=== PATIENT | female | born 1960 | race African-American/Black ===

== ENCOUNTER 2019-03-03 12:14 | Inpatient (IN) | payer OTHER ==
[~2019-03-03] VITALS: Ht 167.6 cm; Wt 99.3 kg
[~2019-03-03 12:14] MED LIST: ASPIRIN325 MG ORAL; LISINOPRIL-HCT1 EAC2 ORAL
--- NOTE | 2019-03-03 13:15 | NUR ---
NURSE NOTES: Pt came up to unit via w/c w/family at bedside and w/belongings accounted for. Pt A&Ox4, VSS, and in no apparent distress at this time. Noted open wound in left knee. Oriented pt to room and hospital policies. Will contact MD for admission orders.
[2019-03-03 13:55] VITALS: BP 151/92
--- NOTE | 2019-03-03 15:30 | Anethesia Preoperative Eval ---
Anesthesia Pre-op PMH/ROS General Date of Evaluation: Mar 03, 2019 Time of Evaluation: 15:25 Anesthesiologist: Audrey ASA Score: ASA 3 Mallampati Score Class I : Soft palate, uvula, fauces, pillars visible Class II: Soft palate, uvula, fauces visible Class III: Soft palate, base of uvula visible Class IV: Only hard plate visible Mallampati Classification: Class II Surgeon: Maicol Diagnosis: Infected L knee artroplasty Surgical Procedure: Revision of infected L knee wound Anesthesia History: none Family History: no anesthesia problems Allergies: Coded Allergies: ACETAMINOPHEN (Verified Allergy, Severe, 01/26/19) SKIN RASH [place] Nut (Verified Allergy, Severe, 01/26/19) TONGUE SWELLING HYDROCODONE (Verified Allergy, Severe, 01/26/19) SKIN RASH Uncoded Allergies: MACADAMIA (Allergy, Severe, 01/26/19) TONGUE SWELLING Medications: see eMAR Patient NPO?: Yes NPO Date: Mar 04, 2019 Past Medical History Cardiovascular: Reports: HTN; Denies: CAD, UT, valve dz, arrhythmia, other Pulmonary: Reports: JASON - heavy snoring; Denies: asthma, COPD, other Gastrointestinal/Genitourinary: Reports: GERD; Denies: CRI, ESRD, other Neurologic/Psychiatric: Reports: depression/anxiety; Denies: dementia, CVA, TIA, other Endocrine: Reports: DM - borderline HEENT: Denies: cataract (L), cataract (R), glaucoma, SIOUX (L), [place] (R), other Hematology/Immune: Denies: anemia, DVT, bleeding disorder, other Musculoskeletal/Integumentary: Reports: OA; Denies: RA, DJD, DDD, edema, other Other: obesity PMH Narrative: as above PSxH Narrative: see H&P Anesthesia Pre-op Phys. Exam Physician Exam Last Vital Signs Date Time Temp Pulse Resp B/P (MAP) Pulse Ox O2 Delivery O2 Flow Rate FiO2 03/03/19 13:55 98.2 91 20 151/92 (111) 97 Constitutional: NAD Neurologic: CN 2-12 intact Cardiovascular: RRR, no M/R/G Respiratory: other - diminished breath sounds bilaterally Gastrointestinal: other - obesity Airway Exam Mallampati Score: Class II MO: limited Neck: stiff ROM: limited Teeth: missing Dentures: no upper, no lower Anesthesia Pre-op A/P Labs see chart Risk Assessment & Plan Assessment: Asa 3 Plan: GA with LMA vs ETT Status Change Before Surgery: No Pre-Antibiotics Drug: as scheduled Venkatesh Ventura MD Mar 03, 2019 15:30
[2019-03-03 16:00] VITALS: BP 147/86
[2019-03-03] MEDS ORDERED: HYDROcodone/Acetamin 5/325 tab ORAL PRN ×2 (16:00)
[2019-03-03] MEDS: Tylenol #3 tab (300mg/30mg) ORAL PRN (17:42)
--- NOTE | 2019-03-03 18:30 | NUR ---
NURSE NOTES: Collected MRSA nares culture and dropped off at lab. Will endorse to oncoming shift.
--- NOTE | 2019-03-03 19:46 | NUR ---
HAND-OFF: Report given to MARYBETH Hubbard.
[2019-03-03 20:00] VITALS: BP 153/87
[2019-03-03] MEDS ORDERED: Zolpidem 5mg tab ORAL PRN (21:00)
[2019-03-04] VITALS (13 sets, daily range): BP systolic 117–163; BP diastolic 65–93
[2019-03-04 05:13] LABS: BASOPHILS % (AUTO) 1.5 % (0.0-2.0); EOSINOPHILS % (AUTO) 4.3 % (0.0-3.0); LYMPHOCYTES % (AUTO) 32.9 % (20.0-45.0); MEAN CORPUSCULAR VOLUME 98 FL (80-99); MONOCYTES % (AUTO) 9.2 % (1.0-10.0); NEUTROPHILS % (AUTO) 52.1 % (45.0-75.0); PLATELET COUNT 142 K/UL (150-450); RED BLOOD COUNT 3.36 M/UL (4.20-5.40); RED CELL DISTRIBUTION WIDTH 18.3 % (11.6-14.8); WHITE BLOOD COUNT 5.7 K/UL (4.8-10.8)
[2019-03-04 05:27] LABS: ANION GAP 7 mmol/L (5-15); BLOOD UREA NITROGEN 7 mg/dL (7-18); CALCIUM 8.4 MG/DL (8.5-10.1); CARBON DIOXIDE 29 MMOL/L (21-32); CHLORIDE 107 MMOL/L (98-107); CREATININE 0.8 MG/DL (0.55-1.30); POTASSIUM 3.1 MMOL/L (3.5-5.1); SODIUM 143 MMOL/L (136-145)
[2019-03-04 05:31] LABS: INR 0.9 (0.9-1.1)
--- NOTE | 2019-03-04 08:41 | History & Physical ---
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 s/p Left Total Knee Resurface arthroplasty Hypertension MEDS and ALLERGIES reviewed and reconciled PHYSICAL WDWN NAD clear breath sounds bilaterally without rhonchi or wheeze [id number] without MRG NABS nontender no HSM no CCE nonfocal Labs Test 03/04/19 05:00 White Blood Count 5.7 K/UL (4.8-10.8) Red Blood Count 3.36 M/UL (4.20-5.40) Hemoglobin 11.0 G/DL (12.0-16.0) Hematocrit 33.0 % (37.0-47.0) Mean Corpuscular Volume 98 FL (80-99) Mean Corpuscular Hemoglobin 32.6 PG (27.0-31.0) Mean Corpuscular Hemoglobin Concent 33.2 G/DL (32.0-36.0) Red Cell Distribution Width 18.3 % (11.6-14.8) Platelet Count 142 K/UL (150-450) Mean Platelet Volume 6.9 FL (6.5-10.1) Neutrophils (%) (Auto) 52.1 % (45.0-75.0) Lymphocytes (%) (Auto) 32.9 % (20.0-45.0) Monocytes (%) (Auto) 9.2 % (1.0-10.0) Eosinophils (%) (Auto) 4.3 % (0.0-3.0) Basophils (%) (Auto) 1.5 % (0.0-2.0) Prothrombin Time 10.1 SEC (9.30-11.50) Prothromb Time International Ratio 0.9 (0.9-1.1) Activated Partial Thromboplast Time 26 SEC (23-33) Sodium Level 143 MMOL/L (136-145) Potassium Level 3.1 MMOL/L (3.5-5.1) Chloride Level 107 MMOL/L (98-107) Carbon Dioxide Level 29 MMOL/L (21-32) Anion Gap 7 mmol/L (5-15) Blood Urea Nitrogen 7 mg/dL (7-18) Creatinine 0.8 MG/DL (0.55-1.30) Estimat Glomerular Filtration Rate > 60 mL/min (>60) Glucose Level 99 MG/DL (74-106) Calcium Level 8.4 MG/DL (8.5-10.1) IMPRESSION End stage joint degeneration, Left Knee. s/p Left Total Knee Resurface arthroplasty Hypertension mild anemia low K replaced PLAN surgical intervention NPO IV hydration pain management patient medically stable to proceed impression, plan, and exam edited and reviewed in detail care discussed with Nhan Akhtar MD Mar 04, 2019 08:41
[2019-03-04] MEDS: Lisinopril 20mg tab ORAL SCH (08:46)
--- NOTE | 2019-03-04 09:19 | NUR ---
NURSE NOTES: Patient received in stable condition, resting in bed. Alert and oriented. Breathing unlabored on room air. No signs of apparent distress observed. IV site on right arm patent and intact, fluids running at 100cc/hr. Scheduled for knee surgery today. Patient's cane by the bedside. Bed locked in lowest position, call light placed within reach. Will continue to monitor.
--- NOTE | 2019-03-04 09:26 | NUR ---
*-* NO INSURANCE INFORMATION IN THE BAR UNABLE TO SEND CLINICALS OR REVIEWS *-*
[2019-03-04] MEDS ORDERED: fentaNYL 100 mcg/2 mL IV ONE (10:25)
[2019-03-04] MEDS ORDERED: Midazolam 2mg/2ml Inj ONE (10:25)
[2019-03-04] MEDS ORDERED: Propofol 200mg/20ml IV ONE (10:26)
[2019-03-04] MEDS ORDERED: Lidocaine 1% MPF 10mg/ml 5ml ONE (10:26)
[2019-03-04] MEDS ORDERED: Bacitracin 50000 Units Vial ONE (10:35)
[2019-03-04] MEDS ORDERED: NeoSporin Gu Irrig 1ml Amp IRRIG ONE (10:35)
[2019-03-04] MEDS ORDERED: LR 1000ml 1,000 ML IVLG SCH (10:36)
[2019-03-04] MEDS ORDERED: Ketorolac 30mg Inj IV PRN (10:45)
[2019-03-04] MEDS ORDERED: Acetaminophen (Non formulary) 100 ML IV ONE (10:45)
[2019-03-04] MEDS ORDERED: Hydromorphone 0.5mg/0.5ml inj IVP PRN (10:45)
[2019-03-04] MEDS ORDERED: DiphenhydrAMINE 50mg/ml Inj IVP PRN (10:45)
[2019-03-04] MEDS ORDERED: LR 1000ml ONE (11:00)
[2019-03-04] MEDS ORDERED: Sterile Water Irrig 1000ml IRRIG ONE (11:00)
[2019-03-04] MEDS ORDERED: NS Irrig 1000ml ONE (11:00)
[2019-03-04] MEDS ORDERED: NS Irrig 4000ml IRRIG ONE (11:00)
--- NOTE | 2019-03-04 11:01 | Pre-Procedure Note/Attestation ---
Pre-Procedure Note/Attestation Complete Prior to Procedure Planned Procedure: left Procedure Narrative: Left Knee Wound breakdown, S/P TKR 01/27/19. For wound debriedmet and closure Indications for Procedure Pre-Operative Diagnosis: Left Knee Wound breakdown, S/P TKR 01/27/19. For wound debriedmet and closure Attestation I attest that I discussed the nature of the procedure; its benefits; risks and complications; and alternatives (and the risks and benefits of such alternatives ), prior to the procedure, with the patient (or the patient's legal guest experience representative). I attest that, if there was a reasonable possibility of needing a blood transfusion, the patient (or the patient's legal guest experience representative) was given the [place] Department [employer] Services standardized written summary, pursuant to the [place]ath[place] Blood Safety Act ([place] Health and Safety Code # 1645, as amended). I attest that I re-evaluated the patient just prior to the surgery and that there has been no change in the patient's H&P, except as documented below: Santino Deleon Mar 04, 2019 11:01
[2019-03-04] MEDS ORDERED: Morphine Sulfate 10mg/ml Inj ONE (11:34)
[2019-03-04] MEDS ORDERED: Sodium Chloride 10ml vial INJ ONE (11:35)
--- NOTE | 2019-03-04 11:35 | Diagnostic Imaging Report ---
Indication: Reason For Exam: PREOP Technique: Single AP view of the chest. Comparison: Chest radiograph dated 08/06/2013 Findings: The cardiomediastinal silhouette is within normal limits. There is mild pulmonary vascular congestion without air space consolidation. No pneumothorax or pleural effusion. Osseous structures demonstrate no acute abnormality. IMPRESSION: Pulmonary vascular congestion without airspace consolidation.
--- NOTE | 2019-03-04 12:01 | Operative Note - PDOC ---
Operative Note Operative Note Pre-op Diagnosis: Left Knee Wound breakdown, S/P TKR 01/27/19. For wound debriedmet and closure Procedure: Left Knee TKR Wound debridement and application of wound vac device Surgeon: Barron Fertilizer Applicator: ITZEL Deleon Anesthesiologist: Audrey Anesthesia: general Specimen: yes - cultures of wound Complications: none Condition: stable Estimated Blood Loss: minimal Drains: wound vac Tourniquet time: 0 - min Implant(s) used?: No Santino Deleon Mar 04, 2019 12:01
--- NOTE | 2019-03-04 12:08 | Immediate Post-Op Evaluation ---
Immediate Post-Op Evalulation Immediate Post-Op Evalulation Procedure: I&D and revision of L knee wound with woundvac placement Date of Evaluation: Mar 04, 2019 Time of Evaluation: 12:07 IV Fluids: 500 Blood Products: none Estimated Blood Loss: min Urinary Output: none Blood Pressure Systolic: 147 Blood Pressure Diastolic: 72 Pulse Rate: 86 Respiratory Rate: 20 O2 Sat by Pulse Oximetry: 99 Temperature (Fahrenheit): 97.6 Pain Score (1-10): 2 Nausea: No Vomiting: No Complications none Patient Status: awake, patent, none Hydration Status: adequate Venkatesh Ventura MD Mar 04, 2019 12:08
--- NOTE | 2019-03-04 13:20 | NUR ---
NURSE NOTES: Received report from Heide RUEDA, pt a/a/o x4 laying in bed with no signs of distress or other issues at this time. VS: Temp: 97.2, HR: 84, BP: 140/92, R: 18, spo2: 100% @2L via n/c. wound vac in place at 125ml/mg continues suction. knee immobilizer in place as well as ice pack. RN will review orders and will carry on as indicated. call light with within reach, bed in lowest position. side rales up x2. I will f/u as needed.
--- NOTE | 2019-03-04 13:41 | NUR ---
*-* INSURANCE *-* ALL AVAILABLE CLINICALS HAVE BEEN FAXED TO: [facility] ADJ: NIRMALA CLARK. P- [phone] F- [phone]
[2019-03-04] MEDS: D5 1/2NS 1,000 ML IV SCH (13:43)
[2019-03-04] MEDS: Tylenol #3 tab (300mg/30mg) ORAL PRN ×2 (13:43→18:13)
--- NOTE | 2019-03-04 17:30 | Operative Note - Dictated ---
DATE OF OPERATION: 03/04/2019 SURGEON: Santino Mart M.D. EVENTS TRAFFIC CONTROLLER: Santino SANTIZO. ANESTHESIA: General, Dr. Ventura. PREOPERATIVE DIAGNOSES: Status post total knee replacement left with superficial wound infection and delayed healing. POSTOPERATIVE DIAGNOSES: Status post total knee replacement left with superficial wound infection and delayed healing. OPERATIVE PROCEDURE: Debridement, culturing of a superficial delayed wound closure left knee following total knee replacement. DESCRIPTION OF PROCEDURE: The patient was placed in the supine position. General anesthesia was instituted. The leg including the anterior knee was prepped and draped freely. There was a delayed wound healing involving the total knee incision on the left. The 6 inch incision was not primarily closed with areas of granulation tissue and some necrotic skin left at the margins and into islands centrally 1 towards the distal and 1 towards the proximal end of the wound. The 2 islands of necrotic skin were removed using a 15 blade to viable granulation tissue underneath. All of the edges were trimmed and all obviously nonviable fascial tissue and hypertrophic granulation was removed to a viable granulating base. Cultures were taken before the cleanout through the middle of the wound where a culture tip could be placed subcuticularly without touching the wound edges. Once it had been debrided, the wound was power lavaged and then scrubbed and lavaged once again. A wound VAC was then placed covering the entire wound from proximal to distal. The size of the wound was 5 inches from proximal to distal and approximately 1 to 2 cm in width varying from proximal to distal. The soft tissues outside the edges was viable and there was not a significant gap that required tension sutures. The patient will probably benefit from hyperbaric oxygen and use of the wound VAC. We will get a plastic surgery consultation. The patient was placed in a bulky dressing and the tissues were supported specially circumferentially around the calf to prevent venous stasis. The patient was returned to recovery room in good condition. Santino Mart M.D. DR: JEREMIE JOB#: [id number] CC:
[2019-03-04] MEDS: ceFAZolin sod 1 GM in D5W 55 ML IV SCH (18:54)
--- NOTE | 2019-03-04 19:00 | NUR ---
NURSE NOTES: called Sruthi WAGE AND SALARY ADMINISTRATOR to request stronger pain medication since pt stated that the Tylenol #3 is not relieving her pain. RN will carry on TO orders. I will f/u as needed.
--- NOTE | 2019-03-04 19:20 | NUR ---
HAND-OFF: Report given to Stevie Mendiola pt in stable condition.
[2019-03-04] MEDS: HYDROmorphone 1mg/ml Carpuject IVP PRN (19:38)
--- NOTE | 2019-03-04 22:11 | NUR ---
NURSE NOTES: Received report from MARYBETH Day and rounds made with outgoing nurse. Received pt laying in bed, AOx4, pain level 8/10, will medicate for pain. Surgical dressing C/D/I, knee immobolizer, ice pack in place, SCD on right leg. IV R FA patent and intact. Bed in lowest position and locked, side rails up x 2, call light within reach. Will continue to monitor.
[2019-03-05] VITALS: BP 127/78
[2019-03-05] MEDS: HYDROmorphone 1mg/ml Carpuject IVP PRN ×2 (00:05→20:17)
[2019-03-05] MEDS: D5 1/2NS 1,000 ML IV SCH (00:24)
--- NOTE | 2019-03-05 02:38 | NUR ---
HAND-OFF: Report given to MARYBETH Abraham. Pt in stable condition.
[2019-03-05 04:00] VITALS: BP 149/100
[2019-03-05] MEDS: ceFAZolin sod 1 GM in D5W 55 ML IV SCH (04:01)
--- NOTE | 2019-03-05 07:45 | NUR ---
NURSE NOTES: Received report from Yuan RN, pt a/a/o x4 laying in bed with no signs of distress or other issues at this time. surgical site c/d/i, ice pack in place. pt c/o of pain in surgical incision 12/20. RN will medicate as ordered per MD. IV on the right FA gauge#22 heplock. wound vac in place settings: 125ml mild continues suction. over night out put: 50ml. oscar light within reach, bed in lowest position. side rales up x2. I will f/u as needed.
[2019-03-05 08:00] VITALS: BP 112/84
--- NOTE | 2019-03-05 08:03 | 48 Hour Post Anesthesia Eval ---
Post Anesthesia Evaluation Procedure: I&D and revision of L knee wound with woundvac placement Date of Evaluation: Mar 05, 2019 Time of Evaluation: 08:02 Blood Pressure Systolic: 148 0: 78 Pulse Rate: 86 Respiratory Rate: 20 Temperature (Fahrenheit): 97.6 O2 Sat by Pulse Oximetry: 98 Airway: patent Nausea: No Vomiting: No Pain Intensity: 3 Hydration Status: adequate Cardiopulmonary Status: stable Mental Status/LOC: patient returned to baseline Follow-up Care/Observations: N/A Post-Anesthesia Complications: none Follow-up care needed: N/A Venkatesh Ventura MD Mar 05, 2019 08:03
--- NOTE | 2019-03-05 08:08 | NUR ---
HAND-OFF: Report given to MARYBETH Day. Patient in stable condition.
--- NOTE | 2019-03-05 08:29 | General Progress Note ---
Assessment/Plan Assessment/Plan: Status post total knee replacement left with superficial wound infection and delayed healing. Debridement, culturing of a superficial delayed wound closure left knee following total knee replacement. hypertension PLAN 1. incentive spirometry 2. Lovenox 3. PT evaluation and therapy 4. Antibiotics per ID 5. Pain management 6. discharge once stable with outpatient follow up Subjective Allergies: Coded Allergies: [place] Nut (Verified Allergy, Severe, 01/26/19) TONGUE SWELLING HYDROCODONE (Verified Allergy, Severe, 01/26/19) SKIN RASH Uncoded Allergies: MACADAMIA (Allergy, Severe, 01/26/19) TONGUE SWELLING Subjective post op care noted ID called Objective Last 24 Hour Vital Signs Date Time Temp Pulse Resp B/P (MAP) Pulse Ox O2 Delivery O2 Flow Rate FiO2 03/05/19 08:03 86 20 98 03/05/19 08:00 97.4 79 20 112/84 (93) 93 03/05/19 04:00 98.4 85 18 149/100 (116) 98 03/05/19 00:00 98.2 78 18 127/78 (94) 96 03/04/19 21:00 Room Air 03/04/19 20:00 98.8 81 18 117/71 (86) 95 03/04/19 18:43 97.2 03/04/19 16:00 97.2 61 18 120/70 (87) 95 03/04/19 13:15 97.5 72 16 163/70 98 Nasal Cannula 3 03/04/19 13:00 68 15 127/65 97 Nasal Cannula 3 03/04/19 12:42 76 17 133/73 100 Nasal Cannula 3 03/04/19 12:37 75 15 125/70 100 Nasal Cannula 3 03/04/19 12:30 78 18 131/84 100 Nasal Cannula 3 03/04/19 12:20 88 16 130/93 100 Simple Mask 6 03/04/19 12:10 79 17 143/89 100 Simple Mask 6 03/04/19 12:08 86 20 99 03/04/19 12:04 97.8 86 20 136/78 100 Simple Mask 6 03/04/19 10:45 97.6 03/04/19 09:00 Room Air 03/04/19 08:46 144/91 Intake and Output 03/04/19 03/05/19 19:00 07:00 Intake Total 1025 ml 1230 ml Output Total 0 ml Balance 1025 ml 1230 ml Intake Oral 800 ml 800 ml IV Total 225 ml 430 ml Output Drainage Total 0 ml # Voids 2 3 Height (Feet): 5 Height (Inches): 6.00 Weight (Pounds): 219 Objective WDWN NAD clear breath sounds bilaterally without rhonchi or wheeze [id number] without MRG NABS nontender no HSM no CCE nonfocal Nhan Cardenas MD Mar 05, 2019 08:29
[2019-03-05] MEDS: Lisinopril 20mg tab ORAL SCH (08:46)
--- NOTE | 2019-03-05 09:44 | General Surgery Progress Note ---
General Surgery-Progress Note Subjective Procedure Performed Left Knee TKR Wound debridement and application of wound vac device Objective Last 24 Hour Vital Signs Date Time Temp Pulse Resp B/P (MAP) Pulse Ox O2 Delivery O2 Flow Rate FiO2 03/05/19 08:46 148/78 03/05/19 08:03 86 20 98 03/05/19 08:00 97.4 79 20 112/84 (93) 93 03/05/19 04:00 98.4 85 18 149/100 (116) 98 03/05/19 00:00 98.2 78 18 127/78 (94) 96 03/04/19 21:00 Room Air 03/04/19 20:00 98.8 81 18 117/71 (86) 95 03/04/19 18:43 97.2 03/04/19 16:00 97.2 61 18 120/70 (87) 95 03/04/19 13:15 97.5 72 16 163/70 98 Nasal Cannula 3 03/04/19 13:00 68 15 127/65 97 Nasal Cannula 3 03/04/19 12:42 76 17 133/73 100 Nasal Cannula 3 03/04/19 12:37 75 15 125/70 100 Nasal Cannula 3 03/04/19 12:30 78 18 131/84 100 Nasal Cannula 3 03/04/19 12:20 88 16 130/93 100 Simple Mask 6 03/04/19 12:10 79 17 143/89 100 Simple Mask 6 03/04/19 12:08 86 20 99 03/04/19 12:04 97.8 86 20 136/78 100 Simple Mask 6 03/04/19 10:45 97.6 I&O Intake and Output 03/04/19 03/05/19 19:00 07:00 Intake Total 1025 ml 1230 ml Output Total 0 ml Balance 1025 ml 1230 ml Intake Oral 800 ml 800 ml IV Total 225 ml 430 ml Output Drainage Total 0 ml # Voids 2 3 Additional Comments Patient post op wound debridement left knee wound. wound covered by wound vac. Stable overnight. Plan Additional Comments Dr. Cardenas following. Patient will need Plastic Surgery / Wound care team management with possible hyperberic therapy to heal this wound and to protect underlying hardware. Santino Deleon Mar 05, 2019 09:44
--- NOTE | 2019-03-05 11:30 | NUR ---
PT NOTE Received MD order for PT evaluation. Attempted to see patient, patient requesting that therapist return at 1:00 p.m. so that she could rest. Barb RUEDA notified, will follow up in p.m.
[2019-03-05 12:00] VITALS: BP 114/77
[2019-03-05] MEDS: Vancomycin 750mg/D5W 275ml IVPB SCH ×4 (12:26→23:24)
--- NOTE | 2019-03-05 13:17 | NUR ---
*-* INSURANCE *-* ALL AVAILABLE CLINICALS HAVE BEEN FAXED TO: [facility] ADJ: NIRMALA CLARK. P- [phone] F- [phone]
--- NOTE | 2019-03-05 13:30 | NUR ---
PT EVALUATION NOTE Patient seen for initial evaluation, see complete evaluation for details. Patient presents with painful L knee s/p wound debridement and placement of wound vac with impaired functional mobility. Patient able to transfer with SBA/CGA and FWW, and able to ambulate 5 ft with CGA and FWW, limited by pain. Patient will benefit from skilled inpatient PT intervention to address overall strength, safety and balance to improve level of functional mobility. Recommend discharge home vs short term SNF for rehab depending on patient's progress once medically cleared by MD. Patient appears to have necessary DME at home. Addendum: 03/05/19 at 1418 by RAMIN VARGHESE PT Amended: Links added.
[2019-03-05] MEDS: Tylenol #3 tab (300mg/30mg) ORAL PRN (15:35)
[2019-03-05 16:00] VITALS: BP 124/69
--- NOTE | 2019-03-05 19:30 | NUR ---
NURSE NOTES: Received report from MARYBETH Day and rounds made with outgoing nurse. Received pt a/a/o x4 laying in bed with no signs of distress noted. Surgical site c/d/i, ice pack in place.Denies pain at this time. IV on the right FA gauge#22 heplock. wound vac in place settings: 125mm Hg continues mild suction. Bed in lowest position and locked, side rails up x 2, call light within reach. Will continue to monitor.
--- NOTE | 2019-03-05 19:32 | NUR ---
HAND-OFF: Report given to Stevie Mendiola pt in stable condition. Wound vac out put during my shift: 50ml
[2019-03-05 20:00] VITALS: BP 139/81
--- NOTE | 2019-03-05 23:00 | NUR ---
NURSE NOTES: Pt refused SCD at this time.
[2019-03-06] VITALS: BP 144/94
[2019-03-06] MEDS: HYDROmorphone 1mg/ml Carpuject IVP PRN ×3 (01:02→22:21)
[2019-03-06 05:17] VITALS: BP 140/91
--- NOTE | 2019-03-06 07:31 | NUR ---
HAND-OFF: Report given to MARYBETH Day. Pt in stable condition.
--- NOTE | 2019-03-06 07:42 | NUR ---
NURSE NOTES: Received report from Stevie Mendiola pt a/a/o x4 laying in bed with no signs of distress or any complains at this time. wound vac in place, no out put over night. pt is able to walk to the bathroom with staff assistance. IV on the Left FA gauge#22 heplock. call light within reach, bed in lowest position. side rales up x2. I will f/u as needed.
[2019-03-06 08:00] VITALS: BP 139/88
--- NOTE | 2019-03-06 08:48 | General Progress Note ---
Assessment/Plan Assessment/Plan: Status post total knee replacement left with superficial wound infection and delayed healing. Debridement, culturing of a superficial delayed wound closure left knee following total knee replacement. hypertension, cultures + staph PLAN 1. incentive spirometry 2. Lovenox 3. PT evaluation and therapy 4. Antibiotics per ID 5. Pain management 6. discharge once stable with outpatient follow up Subjective Allergies: Coded Allergies: [place] Nut (Verified Allergy, Severe, 01/26/19) TONGUE SWELLING HYDROCODONE (Verified Allergy, Severe, 01/26/19) SKIN RASH Uncoded Allergies: MACADAMIA (Allergy, Severe, 01/26/19) TONGUE SWELLING Subjective post op care noted ID and cultures noted Objective Last 24 Hour Vital Signs Date Time Temp Pulse Resp B/P (MAP) Pulse Ox O2 Delivery O2 Flow Rate FiO2 03/06/19 08:00 98.7 87 18 139/88 (105) 95 03/06/19 05:17 98.6 86 18 140/91 (107) 96 03/06/19 00:00 99.1 86 18 144/94 (111) 96 03/05/19 21:00 Room Air 03/05/19 20:00 99.2 82 18 139/81 (100) 96 03/05/19 16:05 98.2 03/05/19 16:00 98.0 77 21 124/69 (87) 93 03/05/19 12:00 98.2 78 20 114/77 (89) 93 03/05/19 09:00 Room Air Intake and Output 03/05/19 03/06/19 19:00 07:00 Intake Total 1730 ml 755.000 ml Output Total 0 ml Balance 1730 ml 755.000 ml Intake Oral 1400 ml 480 ml IV Total 330 ml 275.000 ml Output Drainage Total 0 ml # Voids 2 5 Height (Feet): 5 Height (Inches): 6.00 Weight (Pounds): 219 Objective WDWN NAD clear breath sounds bilaterally without rhonchi or wheeze [id number] without MRG NABS nontender no HSM no CCE nonfocal Nhan Cardenas MD Mar 06, 2019 08:48
[2019-03-06] MEDS: Lisinopril 20mg tab ORAL SCH (08:49)
[2019-03-06] MEDS: Tylenol #3 tab (300mg/30mg) ORAL PRN (08:52)
--- NOTE | 2019-03-06 09:26 | General Surgery Progress Note ---
General Surgery-Progress Note Subjective Procedure Performed Left Knee TKR Wound debridement and application of wound vac device Objective Last 24 Hour Vital Signs Date Time Temp Pulse Resp B/P (MAP) Pulse Ox O2 Delivery O2 Flow Rate FiO2 03/06/19 08:49 139/88 03/06/19 08:00 98.7 87 18 139/88 (105) 95 03/06/19 05:17 98.6 86 18 140/91 (107) 96 03/06/19 00:00 99.1 86 18 144/94 (111) 96 03/05/19 21:00 Room Air 03/05/19 20:00 99.2 82 18 139/81 (100) 96 03/05/19 16:05 98.2 03/05/19 16:00 98.0 77 21 124/69 (87) 93 03/05/19 12:00 98.2 78 20 114/77 (89) 93 I&O Intake and Output 03/05/19 03/06/19 19:00 07:00 Intake Total 1730 ml 755.000 ml Output Total 0 ml Balance 1730 ml 755.000 ml Intake Oral 1400 ml 480 ml IV Total 330 ml 275.000 ml Output Drainage Total 0 ml # Voids 2 5 Additional Comments Request for wound management and plastic surgery treatment (Dr. Coronado) is pending insurance carrier approval. Will have wound care nurse change wound vac as per protocol. Cultures: staph aureus, sensitivities pending. Dr. Cardenas following. NO DISCHARGE UNTIL WOUND CARE IN PLACE. Santino Deleon Mar 06, 2019 09:26
--- NOTE | 2019-03-06 09:51 | NUR ---
NURSE NOTES: Called Dr. Cardenas to notify that pt's potassium is 3.1. RN will carry on orders. I will f/u as needed.
--- NOTE | 2019-03-06 11:37 | NUR ---
*-* INSURANCE *-* ALL AVAILABLE CLINICALS HAVE BEEN FAXED TO: [facility] ADJ: NIRMALA CLARK. P- [phone] F- [phone]
--- NOTE | 2019-03-06 11:52 | Infectious Diseases Prog Note ---
Assessment/Plan Assessment/Plan A; Surgical wound infection with MSSA s/p left total knee replacement HPN Obesity Osteoarthritis P; Change Vancomycin to Cefazolin Subjective ROS Limited/Unobtainable: No Constitutional: Reports: no symptoms Respiratory: Reports: no symptoms Cardiovascular: Reports: no symptoms Genitourinary: Reports: no symptoms Musculoskeletal: Reports: pain, other - in left knee Allergies: Coded Allergies: [place] Nut (Verified Allergy, Severe, 01/26/19) TONGUE SWELLING HYDROCODONE (Verified Allergy, Severe, 01/26/19) SKIN RASH Uncoded Allergies: MACADAMIA (Allergy, Severe, 01/26/19) TONGUE SWELLING Objective Vital Signs Last 24 Hour Vital Signs Date Time Temp Pulse Resp B/P (MAP) Pulse Ox O2 Delivery O2 Flow Rate FiO2 03/06/19 09:22 98.7 03/06/19 09:00 Room Air 03/06/19 08:49 139/88 03/06/19 08:00 98.7 87 18 139/88 (105) 95 03/06/19 05:17 98.6 86 18 140/91 (107) 96 03/06/19 00:00 99.1 86 18 144/94 (111) 96 03/05/19 21:00 Room Air 03/05/19 20:00 99.2 82 18 139/81 (100) 96 03/05/19 16:00 98.0 77 21 124/69 (87) 93 03/05/19 12:00 98.2 78 20 114/77 (89) 93 Height (Feet): 5 Height (Inches): 6.00 Weight (Pounds): 219 General Appearance: no acute distress HEENT: mucous membranes moist Respiratory/Chest: lungs clear Cardiovascular: normal rate Abdomen: soft, non tender Extremities: other - edema of left leg Skin: other - wound-vac of left knee Neurologic/Psychiatric: alert, oriented x 3, responsive Microbiology Date/Time Source Procedure Growth Status 03/03/19 20:45 Nasal Nares MRSA Culture - Final NO METHICILLIN RESISTANT STAPH AUREUS... Complete 03/04/19 11:35 Knee Left Gram Stain - Final Resulted 03/04/19 11:35 Surgical Biopsy Culture - Preliminary Staphylococcus Aureus Resulted 03/04/19 11:35 Knee Left Gram Stain - Final Resulted 03/04/19 11:35 Aerobic Culture - Final Staphylococcus Aureus Resulted 03/04/19 11:35 Knee Left Anaerobic Culture - Preliminary Resulted Current Medications Medications (Trade) Dose Ordered Sig/Felix Route PRN Reason Start Time Stop Time Status Last Admin Dose Admin Acetaminophen (Tylenol) 650 mg Q6H PRN ORAL Temp > 100.5 03/04/19 19:30 04/03/19 11:59 Acetaminophen/ Codeine Phosphate (Tylenol #3) 1 tab Q4H PRN ORAL Mild Pain (Pain Scale 1-3) 03/04/19 19:30 03/10/19 16:44 03/06/19 08:52 Al Hydroxide/Mg Hydroxide (Mylanta) 30 ml Q6H PRN ORAL indigestion 03/03/19 16:45 04/02/19 16:44 Hydrochlorothiazide (Hydrodiuril) 25 mg DAILY ORAL 03/04/19 09:00 04/03/19 08:59 03/06/19 08:49 Hydromorphone HCl (Dilaudid) 1 mg Q4H PRN IVP Moderate Pain (Pain Scale 4-6) 03/04/19 19:30 03/11/19 19:29 03/06/19 05:14 Hydromorphone HCl (Dilaudid) 2 mg Q3H PRN SUBQ Severe Breakthru Pain (>7) 03/04/19 19:30 03/11/19 19:29 Hydromorphone HCl (Dilaudid) 2 mg Q4H PRN IVP Severe Pain (Pain Scale 7-10) 03/04/19 20:00 03/11/19 19:59 03/05/19 10:31 Lisinopril (Prinivil) 20 mg DAILY ORAL 03/04/19 09:00 04/03/19 08:59 03/06/19 08:49 Ondansetron HCl (Zofran) 4 mg Q6H PRN IVP Nausea & Vomiting 03/04/19 12:00 04/03/19 11:59 Pantoprazole (Protonix) 40 mg DAILY ORAL 03/04/19 09:00 04/03/19 08:59 03/06/19 08:49 Temazepam (Restoril) 7.5 mg HSPRN PRN ORAL Insomnia 03/04/19 21:00 03/11/19 20:59 03/05/19 23:20 Vancomycin HCl (Vanco rx to dose) 1 ea DAILY PRN MISC Per rx protocol 03/05/19 10:30 04/04/19 10:29 Vancomycin HCl 750 mg/Dextrose 275 ml @ 183.333 mls/hr Q12H IVPB 03/05/19 12:00 03/10/19 11:59 03/05/19 23:24 Mesfin Barros MD Mar 06, 2019 11:52
--- NOTE | 2019-03-06 11:54 | Consultation ---
DATE OF CONSULTATION: 03/05/2019 INFECTIOUS DISEASES CONSULTATION CONSULTING PHYSICIAN: Mare Lockwood M.D. REFERRING PHYSICIAN: Nhan Cardenas M.D. REASON FOR CONSULTATION: Left knee infection. HISTORY OF PRESENTING ILLNESS: This is a 58-year-old lady with history of hypertension, left knee arthritis, status post left knee arthroplasty, who developed a wound breakdown. There was a concern for wound infection. She underwent debridement of the wound. An Infectious Diseases consultation has been obtained for antibiotics. PAST MEDICAL HISTORY: 1. History of hypertension. 2. History of left knee arthroplasty. SOCIAL HISTORY: She used to be a smoker. She does not smoke anymore. She drinks alcohol socially. No history of drug use. FAMILY HISTORY: Noncontributory. REVIEW OF SYSTEMS: RESPIRATORY: No fever, chills, cough, shortness of breath, or chest pain. CARDIAC: No chest pain. No palpitation. No dizziness. No syncope. GASTROINTESTINAL: No nausea. No vomiting. No abdominal pain or diarrhea. MUSCULOSKELETAL: She complains of left knee pain. MEDICATIONS: As an inpatient, she is on Restoril, Dilaudid, Ancef, Tylenol, Tylenol with Codeine, Zofran, lisinopril, Protonix, hydrochlorothiazide, and Mylanta. ALLERGIES: 1. . 2. Hydrocodone. 3. . PHYSICAL EXAMINATION: VITAL SIGNS: Temperature of 97.8, T-max of 98.5, pulse of 86, respiratory rate 20, blood pressure 148/78, O2 saturation of 98%. HEENT: Pupils equally reactive to light and accommodation. Mouth appears clean with no thrush. NECK: Supple. No adenopathy. No JVD. CARDIOVASCULAR: Regular rate and rhythm. No murmurs. LUNGS: Clear to auscultation bilaterally. No crackles. No wheezes. ABDOMEN: Soft and nontender. No organomegaly. EXTREMITIES: No cyanosis, no clubbing, no edema. Left leg is in dressings and a brace. LABORATORY AND DIAGNOSTIC DATA: White count 5.7, hemoglobin 11, hematocrit 33, MCV 98, platelet count of 142, neutrophils of 52%. Sodium 143, potassium 3.1, chloride 107, bicarb 29, BUN 7, creatinine 0.8. Surgical cultures are pending. Chest x-ray is showing pulmonary vascular congestion without consolidation. ASSESSMENT: 1. This is a 58-year-old lady with history of hypertension and left total knee arthroplasty, who comes in with left knee wound infection she has undergone debridement. Cultures are pending so far. 2. History of hypertension. 3. History of left total knee arthroplasty. PLAN: 1. Discontinue Ancef. 2. We will start the patient on IV vancomycin. 3. We will follow up cultures and adjust antibiotics accordingly. I would like to thank, Dr. Cardenas, for this consultation. Mare Lockwood M.D. DR: RUSLAN JOB#: [id number] CC: Nhan Cardenas M.D.; Fax#: [phone]
[2019-03-06 12:00] VITALS: BP 116/78
--- NOTE | 2019-03-06 12:20 | NUR ---
RD ASSESSMENT & RECOMMENDATIONS SEE CARE ACTIVITY FOR COMPLETE ASSESSMENT DAILY ESTIMATED NEEDS: Needs based on obesity, wound; adj 69.2kg 20-25 kcals/kg 1384- 1730 total kcals 1.25-1.5 g protein/kg 87- 104 g total protein Fluid per MD, on diuretics NUTRITION DIAGNOSIS: Increased pro needs r/t surgery and wound healing AEB S/p L TKR w/ open wound, now s/p debridement w/ wound vac CURRENT DIET:Regular PO DIET RECOMMENDATIONS: Regular Diet ADDITIONAL RECOMMENDATIONS: 1) Maintain calibrated bedscale wt. 2) Wound healing: provide Collin BID + Vit C 250mg daily 3) Updated chem panel as able Pt on diuretics, rec lytes
[2019-03-06] MEDS: ceFAZolin sod 1 GM in D5W 55 ML IVPB SCH ×2 (13:42→21:29)
--- NOTE | 2019-03-06 14:15 | NUR ---
PT NOTE Attempted to see patient for PT treatment. Patient declining to participate with PT at this time, states she just returned to bed after using bedside commode. Will follow up tomorrow.
[2019-03-06 16:00] VITALS: BP 127/81
[2019-03-06] MEDS ORDERED: AMBIEN10 MG ORAL (18:00)
[2019-03-06] MEDS ORDERED: ACETAMINOPHEN325 M1 ORAL (18:00)
--- NOTE | 2019-03-06 18:35 | NUR ---
NURSE NOTES:WOUND CARE NOTES: Pt's NPWT L knee changed.150ml serosanguineous exudate noted in canister. Granulofoam moistened prior to removal from L knee. Base of wound beefy red with moderate amt sanguineous exudate. No odor noted . No erythema or elevation in skin temp periwound. Wound cleansed with Saline. Cavilon Skin Barrier applied periwound. Transparent Drape drsg placed along perimeter of wound . Granulofoam packing applied and wound was covered with transparent drsg. NPWT resumed as ordered @125mm/Hg to continuous suction. Pt tolerated procedure well.
--- NOTE | 2019-03-06 19:19 | NUR ---
HAND-OFF: Report given to Stevie Mendiola pt in stable condition. - wound vac changed during my shift by the water conservation specialist. pt was able to tolerate procedure with no signs of distress or other issues. - wound vac out put: 50ml - wound vac form fill it out and needs to be sign by MD (EL dillon MD). Incoming nurse is aware and will ask MD or morning nurse to f/u with wound vac form.
--- NOTE | 2019-03-06 19:30 | NUR ---
NURSE NOTES: Received report from MARYBETH Day and rounds made with outgoing nurse. Received pt laying in bed, AOx4, denies any pain, no distress noted. Surgical site c/d/i, wound vac in place no output at this time. IV R AC patent and intact. Bed in lowest position and locked, side rails up x 2, call light within reach. Will continue to monitor.
[2019-03-06 20:00] VITALS: BP 113/72
[2019-03-07] VITALS: BP 115/68
[2019-03-07 04:00] VITALS: BP 138/93
[2019-03-07] MEDS: ceFAZolin sod 1 GM in D5W 55 ML IVPB SCH ×2 (05:17→14:55)
--- NOTE | 2019-03-07 07:11 | NUR ---
HAND-OFF: Report given to MARYBETH Gamez. Pt in stable condition. Endorsed to Vera to have [employer] "[place] certified paper" signed by MD/PA today. JO-ANN Barrow aware.
--- NOTE | 2019-03-07 07:12 | NUR ---
NURSE NOTES: Received patient awake, no SOB or distress. IV line intact and patent, no s/s of infiltration. Wound vac on left knee intact, vacuum on. Immobilizer on left knee on. Will continue to monitor.
[2019-03-07 08:00] VITALS: BP 129/81
--- NOTE | 2019-03-07 08:56 | General Progress Note ---
Assessment/Plan Assessment/Plan: Status post total knee replacement left with superficial wound infection and delayed healing. Debridement, culturing of a superficial delayed wound closure left knee following total knee replacement. hypertension, cultures + staph PLAN 1. incentive spirometry 2. Lovenox 3. PT evaluation and therapy 4. Antibiotics per ID; now on ancef 5. Pain management 6. discharge once cleared Subjective Allergies: Coded Allergies: [place] Nut (Verified Allergy, Severe, 01/26/19) TONGUE SWELLING HYDROCODONE (Verified Allergy, Severe, 01/26/19) SKIN RASH Uncoded Allergies: MACADAMIA (Allergy, Severe, 01/26/19) TONGUE SWELLING Subjective post op care noted ID and cultures noted Objective Last 24 Hour Vital Signs Date Time Temp Pulse Resp B/P (MAP) Pulse Ox O2 Delivery O2 Flow Rate FiO2 03/07/19 04:00 98.7 85 16 138/93 (108) 95 03/07/19 00:00 98.6 85 16 115/68 (84) 97 03/06/19 21:00 Room Air 03/06/19 20:00 98.9 89 17 113/72 (86) 97 03/06/19 16:59 98.5 03/06/19 16:00 98.5 76 18 127/81 (96) 95 03/06/19 12:00 98.6 73 20 116/78 (91) 95 03/06/19 09:22 98.7 03/06/19 09:00 Room Air Intake and Output 03/06/19 03/07/19 19:00 07:00 Intake Total 1200 ml 535 ml Output Total 50 ml 0 ml Balance 1150 ml 535 ml Intake Oral 1200 ml 480 ml IV Total 55 ml Output Drainage Total 50 ml 0 ml # Voids 3 # Bowel Movements 1 Height (Feet): 5 Height (Inches): 6.00 Weight (Pounds): 219 Objective WDWN NAD clear breath sounds bilaterally without rhonchi or wheeze [id number] without MRG NABS nontender no HSM no CCE nonfocal Nhan Cardenas MD Mar 07, 2019 08:56
[2019-03-07] MEDS: Lisinopril 20mg tab ORAL SCH (09:26)
--- NOTE | 2019-03-07 10:00 | NUR ---
PT Note Attempted to see patient x 2 in AM. On first try, patient states that she wants to have pain meds first prior to having physical therapy. RN was notified of patient's request for pain meds. Attempted to see patient a second time (`1 hour after pain meds were given) but patient refused. RN/CN was notified.
[2019-03-07 12:00] VITALS: BP 116/73
[2019-03-07 16:00] VITALS: BP 123/77
--- NOTE | 2019-03-07 17:00 | NUR ---
NURSE NOTES: IV line leaking, no s/s of infection. Removed and reinserted to left forearm using g22, tolerated well by patient.
--- NOTE | 2019-03-07 17:07 | Infectious Diseases Prog Note ---
Assessment/Plan Assessment/Plan A; Surgical wound infection with MSSA & Gram negative s/p left total knee replacement HPN Obesity Osteoarthritis P; Change Cefazolin to Cefepime Subjective ROS Limited/Unobtainable: No Constitutional: Reports: no symptoms Respiratory: Reports: no symptoms Cardiovascular: Reports: no symptoms Gastrointestinal/Abdominal: Reports: no symptoms Musculoskeletal: Reports: pain, other - controlled Allergies: Coded Allergies: [place] Nut (Verified Allergy, Severe, 01/26/19) TONGUE SWELLING HYDROCODONE (Verified Allergy, Severe, 01/26/19) SKIN RASH Uncoded Allergies: MACADAMIA (Allergy, Severe, 01/26/19) TONGUE SWELLING Objective Vital Signs Last 24 Hour Vital Signs Date Time Temp Pulse Resp B/P (MAP) Pulse Ox O2 Delivery O2 Flow Rate FiO2 03/07/19 16:00 98.2 80 17 123/77 (92) 92 03/07/19 12:00 98.5 69 17 116/73 (87) 94 03/07/19 09:26 129/81 03/07/19 09:00 Room Air 03/07/19 08:00 98.4 90 17 129/81 (97) 95 03/07/19 04:00 98.7 85 16 138/93 (108) 95 03/07/19 00:00 98.6 85 16 115/68 (84) 97 03/06/19 21:00 Room Air 03/06/19 20:00 98.9 89 17 113/72 (86) 97 Height (Feet): 5 Height (Inches): 6.00 Weight (Pounds): 219 General Appearance: no acute distress HEENT: mucous membranes moist Respiratory/Chest: lungs clear Cardiovascular: normal rate Abdomen: soft, non tender Extremities: other - edema of left leg Skin: other - left knee woud-vac Neurologic/Psychiatric: alert, oriented x 3, responsive Current Medications Medications (Trade) Dose Ordered Sig/Felix Route PRN Reason Start Time Stop Time Status Last Admin Dose Admin Acetaminophen (Tylenol) 650 mg Q6H PRN ORAL Temp > 100.5 03/04/19 19:30 04/03/19 11:59 Acetaminophen/ Codeine Phosphate (Tylenol #3) 1 tab Q4H PRN ORAL Mild Pain (Pain Scale 1-3) 03/04/19 19:30 03/10/19 16:44 03/06/19 08:52 Al Hydroxide/Mg Hydroxide (Mylanta) 30 ml Q6H PRN ORAL indigestion 03/03/19 16:45 04/02/19 16:44 Cefazolin Sodium 1 gm/Dextrose 55 ml @ 110 mls/hr Q8HR IVPB 03/06/19 14:00 03/13/19 13:59 03/07/19 14:55 Hydrochlorothiazide (Hydrodiuril) 25 mg DAILY ORAL 03/04/19 09:00 04/03/19 08:59 03/07/19 09:26 Hydromorphone HCl (Dilaudid) 1 mg Q4H PRN IVP Moderate Pain (Pain Scale 4-6) 03/04/19 19:30 03/11/19 19:29 03/06/19 22:21 Hydromorphone HCl (Dilaudid) 2 mg Q3H PRN SUBQ Severe Breakthru Pain (>7) 03/04/19 19:30 03/11/19 19:29 Hydromorphone HCl (Dilaudid) 2 mg Q4H PRN IVP Severe Pain (Pain Scale 7-10) 03/04/19 20:00 03/11/19 19:59 03/07/19 08:44 Lisinopril (Prinivil) 20 mg DAILY ORAL 03/04/19 09:00 04/03/19 08:59 03/07/19 09:26 Ondansetron HCl (Zofran) 4 mg Q6H PRN IVP Nausea & Vomiting 03/04/19 12:00 04/03/19 11:59 Pantoprazole (Protonix) 40 mg DAILY ORAL 03/04/19 09:00 04/03/19 08:59 03/07/19 09:26 Temazepam (Restoril) 7.5 mg HSPRN PRN ORAL Insomnia 03/04/19 21:00 03/11/19 20:59 03/06/19 21:35 Mesfin Barros MD Mar 07, 2019 17:07
--- NOTE | 2019-03-07 19:30 | NUR ---
NURSE NOTES: Receive a report from MARYBETH Grimm. Round is done. Pt is awake and alert. No acute distress noted. After pain medication, pain level decreased but still noted pulling sensation d/t wound VAC. Will continue to follow up for controlling pain. Left wound Vac seal without leaking with setting mode. Keep dressing dry and clean with immobilizer. On applying ice bags q15-20 min. No noted output except on the line. Noted mild swelling on left foot. Keep elevated with pillow. Pt uses her own cane to use bedside comodo. Provide fall precautions. Pt is aware of them. Explain for calling nurse for help. Call light within reach. Will continue to monitor.
[2019-03-07] MEDS: Cefepime HCl 1 GM in D5W 55 ML IVPB SCH (19:41)
[2019-03-07 20:00] VITALS: BP 116/79
--- NOTE | 2019-03-07 20:05 | NUR ---
HAND-OFF: Report given to o.
--- NOTE | 2019-03-07 23:30 | NUR ---
NURSE NOTES: Pt is asleep without distress after pain medication. Breathing is even and non labored. Will continue to monitor.
[2019-03-08 04:00] VITALS: BP 134/81
--- NOTE | 2019-03-08 06:00 | NUR ---
NURSE NOTES: Left knee pain is tolerable as 4/10. No output on wound vac except line. Will continue to monitor.
[2019-03-08] MEDS: Cefepime HCl 1 GM in D5W 55 ML IVPB SCH ×2 (06:17→17:25)
[2019-03-08 08:00] VITALS: BP 124/77
--- NOTE | 2019-03-08 08:00 | NUR ---
HAND-OFF: Report given to MARYBETH Day. Round is done.
--- NOTE | 2019-03-08 08:00 | NUR ---
NURSE NOTES: Received report from Eriberto RN, pt a/a/ox4 laying in bed in bed with no signs of distress or other issues at this time. wound vac in place at 125mmg mild continues suction. 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 last wound vac dressing was change on Tuesday 03/06. plan to change wound vac dressing tomorrow by solar energy specialist. pt ambulating to the bathroom and around the unit. call light within reach, bed in lowest position. side rales up x2. I will f/ u as needed.
[2019-03-08] MEDS: Lisinopril 20mg tab ORAL SCH (09:20)
--- NOTE | 2019-03-08 11:45 | NUR ---
HAND-OFF: Report given to Srinivas RUEDA. pt in stable condition.
--- NOTE | 2019-03-08 11:46 | NUR ---
NURSE NOTES: Received pt in bed, AAO x 4. Room air. No c/o of distress. Pain 12/20. Tylenol given and will reassess. IV on R FA 22g intact and patent, with saline lock. Wound vac noted at 125 on mild continued suction. Side rails x 2. Bed in the lowest, locked, and alarm on. Call light within reach. Will continue to monitor
[2019-03-08] MEDS: Tylenol #3 tab (300mg/30mg) ORAL PRN (11:55)
[2019-03-08 12:00] VITALS: BP 134/87
[2019-03-08 16:00] VITALS: BP 145/76
[2019-03-08] MEDS ORDERED: Tubing IV Secondary IV ONE (16:06)
[2019-03-08] MEDS ORDERED: NS 275ml ONE (16:06)
--- NOTE | 2019-03-08 19:09 | NUR ---
HAND-OFF: Report given to MARYBETH Wei.
--- NOTE | 2019-03-08 19:15 | NUR ---
NURSE NOTES: Receive a report from MARYBETH Patten. Pt is lying in bed and family members are bedside. No acute distress noted. But increased pain on left knee. Provide pain medication as ordered. Wound Vac is in placed in setting mode. IV site on right FA is clear without infiltration. Call light within reach. Will continue to monitor.
[2019-03-08 20:00] VITALS: BP 133/91
[2019-03-09] VITALS: BP 116/81
[2019-03-09 05:24] VITALS: BP 125/83
[2019-03-09] MEDS: Cefepime HCl 1 GM in D5W 55 ML IVPB SCH ×2 (05:26→17:36)
--- NOTE | 2019-03-09 06:00 | NUR ---
NURSE NOTES: No collection on Wound Vac except line. Will continue to monitor.
--- NOTE | 2019-03-09 07:30 | NUR ---
HAND-OFF: Report given to MARYBETH Day.
[2019-03-09 08:00] VITALS: BP 93/63
--- NOTE | 2019-03-09 08:00 | General Progress Note ---
Assessment/Plan Assessment/Plan: Status post total knee replacement left with superficial wound infection and delayed healing. Debridement, culturing of a superficial delayed wound closure left knee following total knee replacement. hypertension, cultures + staph PLAN 1. incentive spirometry 2. Lovenox 3. PT evaluation and therapy 4. Antibiotics per ID; 5. Pain management 6. hope to dc soon Subjective Date patient seen: Mar 08, 2019 Allergies: Coded Allergies: [place] Nut (Verified Allergy, Severe, 01/26/19) TONGUE SWELLING HYDROCODONE (Verified Allergy, Severe, 01/26/19) SKIN RASH Uncoded Allergies: MACADAMIA (Allergy, Severe, 01/26/19) TONGUE SWELLING Subjective post op care noted ID and cultures noted Objective Last 24 Hour Vital Signs Date Time Temp Pulse Resp B/P (MAP) Pulse Ox O2 Delivery O2 Flow Rate FiO2 03/08/19 09:20 124/77 03/08/19 09:00 Room Air 03/08/19 08:00 98.8 79 18 124/77 (93) 94 Intake and Output Height (Feet): 5 Height (Inches): 6.00 Weight (Pounds): 219 Objective WDWN NAD clear breath sounds bilaterally without rhonchi or wheeze [id number] without MRG NABS nontender no HSM no CCE nonfocal Nhan Cardenas MD Mar 09, 2019 08:00
[2019-03-09] MEDS: Lisinopril 20mg tab ORAL SCH (08:56)
--- NOTE | 2019-03-09 09:25 | NUR ---
PT NOTE Attempted to see patient in a.m. for PT treatment. Patient declining to participate at this time, requesting that therapist return in the p.m., will follow.
--- NOTE | 2019-03-09 09:52 | NUR ---
NURSE NOTES: Received report from Pippao RN, pt a/a/o x4 laying in bed with no signs of distress or other issues at this time. wound vac in place at 125mmg mild continues suction, no out put over night. IV on the left FA gauge #22 heplock. pt is able to ambulate to the restroom with staff assistance. call light within reach, bed in lowest position, side rales up x2. I will f/u as needed.
--- NOTE | 2019-03-09 11:00 | General Surgery Progress Note ---
General Surgery-Progress Note Subjective Procedure Performed Left Knee TKR Wound debridement and application of wound vac device Objective Last 24 Hour Vital Signs Date Time Temp Pulse Resp B/P (MAP) Pulse Ox O2 Delivery O2 Flow Rate FiO2 03/09/19 09:00 Room Air 03/09/19 08:56 83/66 03/09/19 08:00 97.7 77 18 93/63 (73) 97 03/09/19 05:24 98.0 78 18 125/83 (97) 97 03/09/19 04:00 17 03/09/19 00:00 98.0 84 18 116/81 (93) 98 03/08/19 21:00 Room Air 03/08/19 20:00 98.1 77 18 133/91 (105) 95 03/08/19 16:00 98.8 79 18 145/76 (99) 95 03/08/19 12:00 99.0 77 16 134/87 (103) 95 I&O Intake and Output 03/08/19 03/09/19 19:00 07:00 Intake Total 300 ml Balance 300 ml Intake Oral 300 ml # Voids 3 3 Additional Comments Wound vac changed Saturday and will be changed today. Pending work comp authorization for wound care team and plastic surgery care. Assessment Additional Comments Dr. Ronald gonsalez. Pending work comp authorization for wound care team and plastic surgery care. Santino Deleon Mar 09, 2019 11:00
--- NOTE | 2019-03-09 11:05 | Infectious Diseases Prog Note ---
Assessment/Plan Assessment/Plan antibiotics : cefepime A 1. left knee superficial wound infection with staph aureus, achromobacter s/p debridement 2. s/p left total knee arthroplasty 3. hypertension P 1. continue iv cefepime 2. po levoquin on discharge 9 more days 3. will follow up cultures Subjective Constitutional: Denies: fever, chills Respiratory: Denies: shortness of breath, dry cough Gastrointestinal/Abdominal: Denies: nausea, vomiting, diarrhea Musculoskeletal: Reports: pain Allergies: Coded Allergies: [place] Nut (Verified Allergy, Severe, 01/26/19) TONGUE SWELLING HYDROCODONE (Verified Allergy, Severe, 01/26/19) SKIN RASH Uncoded Allergies: MACADAMIA (Allergy, Severe, 01/26/19) TONGUE SWELLING Objective Vital Signs Last 24 Hour Vital Signs Date Time Temp Pulse Resp B/P (MAP) Pulse Ox O2 Delivery O2 Flow Rate FiO2 03/09/19 09:00 Room Air 03/09/19 08:56 83/66 03/09/19 08:00 97.7 77 18 93/63 (73) 97 03/09/19 05:24 98.0 78 18 125/83 (97) 97 03/09/19 04:00 17 03/09/19 00:00 98.0 84 18 116/81 (93) 98 03/08/19 21:00 Room Air 03/08/19 20:00 98.1 77 18 133/91 (105) 95 03/08/19 16:00 98.8 79 18 145/76 (99) 95 03/08/19 12:00 99.0 77 16 134/87 (103) 95 Height (Feet): 5 Height (Inches): 6.00 Weight (Pounds): 219 Respiratory/Chest: lungs clear Cardiovascular: normal rate, regular rhythm, no gallop/murmur Abdomen: soft, non tender Extremities: other - left leg brace Current Medications Medications (Trade) Dose Ordered Sig/Felix Route PRN Reason Start Time Stop Time Status Last Admin Dose Admin Acetaminophen (Tylenol) 650 mg Q6H PRN ORAL Temp > 100.5 03/04/19 19:30 04/03/19 11:59 Acetaminophen/ Codeine Phosphate (Tylenol #3) 1 tab Q4H PRN ORAL Mild Pain (Pain Scale 1-3) 03/04/19 19:30 03/10/19 16:44 03/08/19 11:55 Al Hydroxide/Mg Hydroxide (Mylanta) 30 ml Q6H PRN ORAL indigestion 03/03/19 16:45 04/02/19 16:44 Cefepime HCl 1 gm/ Dextrose 55 ml @ 110 mls/hr Q12H IVPB 03/07/19 18:00 03/14/19 17:59 03/09/19 05:26 Hydrochlorothiazide (Hydrodiuril) 25 mg DAILY ORAL 03/04/19 09:00 04/03/19 08:59 03/09/19 08:46 Hydromorphone HCl (Dilaudid) 1 mg Q4H PRN IVP Moderate Pain (Pain Scale 4-6) 03/04/19 19:30 03/11/19 19:29 03/06/19 22:21 Hydromorphone HCl (Dilaudid) 2 mg Q3H PRN SUBQ Severe Breakthru Pain (>7) 03/04/19 19:30 03/11/19 19:29 Hydromorphone HCl (Dilaudid) 2 mg Q4H PRN IVP Severe Pain (Pain Scale 7-10) 03/04/19 20:00 03/11/19 19:59 03/09/19 05:25 Lisinopril (Prinivil) 20 mg DAILY ORAL 03/04/19 09:00 04/03/19 08:59 03/08/19 09:20 Ondansetron HCl (Zofran) 4 mg Q6H PRN IVP Nausea & Vomiting 03/04/19 12:00 04/03/19 11:59 Pantoprazole (Protonix) 40 mg DAILY ORAL 03/04/19 09:00 04/03/19 08:59 03/09/19 08:46 Temazepam (Restoril) 7.5 mg HSPRN PRN ORAL Insomnia 03/04/19 21:00 03/11/19 20:59 03/07/19 20:39 Mare Lockwood MD Mar 09, 2019 11:05
[2019-03-09 12:00] VITALS: BP 120/74
--- NOTE | 2019-03-09 13:51 | NUR ---
*-* INSURANCE *-* ALL AVAILABLE CLINICALS HAVE BEEN FAXED TO: [facility] ADJ: NIRMALA CLARK. P- [phone] F- [phone]
--- NOTE | 2019-03-09 14:00 | NUR ---
PT NOTE Attempted to see patient for PT treatment. Patient declining to participate, c/o burning L knee after dressing was changed. Patient requesting that therapist return tomorrow. Michele dumont RN notified, will follow up tomorrow.
--- NOTE | 2019-03-09 15:52 | NUR ---
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 97.6 HR 67 RR 18 B/P 125/70 IS: CEFEPIME IV PRINIVIL PO PROTONIX DILAUDID IV MED/SURG STATUS
[2019-03-09] MEDS: Tylenol #3 tab (300mg/30mg) ORAL PRN ×2 (15:54→20:16)
[2019-03-09 16:00] VITALS: BP 102/63
[2019-03-09] MEDS: HYDROmorphone 1mg/ml Carpuject IVP PRN ×2 (17:41→22:59)
[2019-03-09 20:00] VITALS: BP 145/97
--- NOTE | 2019-03-09 20:03 | NUR ---
HAND-OFF: Report given to Carlitos RUEDA, pt in stable condition. - During my shift wound vac was changed with no issues. - no drainage/ out put noted during my shift.
--- NOTE | 2019-03-09 22:33 | NUR ---
NURSES NOTE: Received pt in bed, A/O X4, able to communicate needs and answers questions appropriately. No outward signs or symptoms of distress. Breathing pattern is even and unlabored on RA. Patient is stating she has pain 8/10 in left knee. Tylenol #3 given at apprx 2030. effective- pain now 3/10. Wound vac on at 125 mmgh, continous mild suctioning. Wound vac last changed 03/09 by day nurse. Bed at lowest level, call light within reach. Asked pt to pls let RN know if needing assistance to ambulate to restroom. Will continue to monitor.
[2019-03-10 00:42] VITALS: BP 131/80
[2019-03-10 04:00] VITALS: BP 139/92
[2019-03-10] MEDS: Cefepime HCl 1 GM in D5W 55 ML IVPB SCH ×2 (05:23→17:31)
--- NOTE | 2019-03-10 07:53 | NUR ---
HAND OFF: Report given to MARYBETH Schwartz. Patient in stable condition.
[2019-03-10 08:00] VITALS: BP 139/86
[2019-03-10] MEDS: Lisinopril 20mg tab ORAL SCH (08:26)
--- NOTE | 2019-03-10 09:14 | General Progress Note ---
Assessment/Plan Assessment/Plan: Status post total knee replacement left with superficial wound infection and delayed healing. Debridement, culturing of a superficial delayed wound closure left knee following total knee replacement. hypertension, cultures + staph PLAN 1. incentive spirometry 2. Lovenox 3. PT evaluation and therapy 4. Antibiotics - Levaquin 5. Pain management 6. hope to dc today with wound care Subjective Allergies: Coded Allergies: [place] Nut (Verified Allergy, Severe, 01/26/19) TONGUE SWELLING HYDROCODONE (Verified Allergy, Severe, 01/26/19) SKIN RASH Uncoded Allergies: MACADAMIA (Allergy, Severe, 01/26/19) TONGUE SWELLING Subjective post op care noted ID and cultures noted clearance noted Objective Last 24 Hour Vital Signs Date Time Temp Pulse Resp B/P (MAP) Pulse Ox O2 Delivery O2 Flow Rate FiO2 03/10/19 08:26 139/86 03/10/19 04:00 97.9 70 18 139/92 (108) 96 03/10/19 00:42 97.7 87 18 131/80 (97) 97 03/09/19 21:00 Room Air 03/09/19 20:00 98.4 79 19 145/97 (113) 96 03/09/19 18:11 97.8 03/09/19 16:24 97.8 03/09/19 16:00 97.8 76 18 102/63 (76) 96 03/09/19 12:45 97.7 03/09/19 12:00 97.6 67 18 120/74 (89) 98 Intake and Output 03/09/19 03/10/19 18:59 06:59 Intake Total 100 ml 535 ml Output Total 0 ml 0 ml Balance 100 ml 535 ml Intake Oral 100 ml 480 ml IV Total 55 ml Output Drainage Total 0 ml 0 ml # Voids 2 # Bowel Movements 1 1 Height (Feet): 5 Height (Inches): 6.00 Weight (Pounds): 219 Objective WDWN NAD clear breath sounds bilaterally without rhonchi or wheeze [id number] without MRG NABS nontender no HSM no CCE nonfocal Nhan Cardenas MD Mar 10, 2019 09:14
--- NOTE | 2019-03-10 09:19 | NUR ---
NURSE NOTES: Patient received from Justyna RUEDA. Patient stable AOx4 with complaints of 9/10 pain. No s/sx of distress. RR even and unlabored on RA. Wound vac functioning properly on ordered settings. Dressings dry and intact with knee immobilizer on. Bed low and locked. Call light within reach. Will continue to monitor.
--- NOTE | 2019-03-10 10:57 | Infectious Diseases Prog Note ---
Assessment/Plan Assessment/Plan antibiotics : cefepime A 1. left knee superficial wound infection with staph aureus, achromobacter s/p debridement 2. s/p left total knee arthroplasty 3. hypertension P 1. continue iv cefepime in hospital 2. po levoquin on discharge 8 more days 3. will follow up cultures Subjective Constitutional: Denies: fever, chills Respiratory: Denies: shortness of breath, dry cough Gastrointestinal/Abdominal: Denies: nausea, vomiting, diarrhea Musculoskeletal: Reports: pain - in left leg Allergies: Coded Allergies: [place] Nut (Verified Allergy, Severe, 01/26/19) TONGUE SWELLING HYDROCODONE (Verified Allergy, Severe, 01/26/19) SKIN RASH Uncoded Allergies: MACADAMIA (Allergy, Severe, 01/26/19) TONGUE SWELLING Objective Vital Signs Last 24 Hour Vital Signs Date Time Temp Pulse Resp B/P (MAP) Pulse Ox O2 Delivery O2 Flow Rate FiO2 03/10/19 09:00 Room Air 03/10/19 08:26 139/86 03/10/19 08:00 98.7 94 19 139/86 (103) 97 03/10/19 04:00 97.9 70 18 139/92 (108) 96 03/10/19 00:42 97.7 87 18 131/80 (97) 97 03/09/19 21:00 Room Air 03/09/19 20:00 98.4 79 19 145/97 (113) 96 03/09/19 18:11 97.8 03/09/19 16:24 97.8 03/09/19 16:00 97.8 76 18 102/63 (76) 96 03/09/19 12:45 97.7 03/09/19 12:00 97.6 67 18 120/74 (89) 98 Height (Feet): 5 Height (Inches): 6.00 Weight (Pounds): 219 Respiratory/Chest: lungs clear Cardiovascular: normal rate, regular rhythm, no gallop/murmur Abdomen: soft, non tender Extremities: other - left leg brace, VAC, edema Current Medications Medications (Trade) Dose Ordered Sig/Felix Route PRN Reason Start Time Stop Time Status Last Admin Dose Admin Acetaminophen (Tylenol) 650 mg Q6H PRN ORAL Temp > 100.5 03/04/19 19:30 04/03/19 11:59 Acetaminophen/ Codeine Phosphate (Tylenol #3) 1 tab Q4H PRN ORAL Mild Pain (Pain Scale 1-3) 03/04/19 19:30 03/10/19 16:44 03/09/19 20:16 Al Hydroxide/Mg Hydroxide (Mylanta) 30 ml Q6H PRN ORAL indigestion 03/03/19 16:45 04/02/19 16:44 Cefepime HCl 1 gm/ Dextrose 55 ml @ 110 mls/hr Q12H IVPB 03/07/19 18:00 03/14/19 17:59 03/10/19 05:23 Hydrochlorothiazide (Hydrodiuril) 25 mg DAILY ORAL 03/04/19 09:00 04/03/19 08:59 03/10/19 08:25 Hydromorphone HCl (Dilaudid) 1 mg Q4H PRN IVP Moderate Pain (Pain Scale 4-6) 03/04/19 19:30 03/11/19 19:29 03/09/19 22:59 Hydromorphone HCl (Dilaudid) 2 mg Q3H PRN SUBQ Severe Breakthru Pain (>7) 03/04/19 19:30 03/11/19 19:29 Hydromorphone HCl (Dilaudid) 2 mg Q4H PRN IVP Severe Pain (Pain Scale 7-10) 03/04/19 20:00 03/11/19 19:59 03/10/19 08:17 Lisinopril (Prinivil) 20 mg DAILY ORAL 03/04/19 09:00 04/03/19 08:59 03/10/19 08:26 Ondansetron HCl (Zofran) 4 mg Q6H PRN IVP Nausea & Vomiting 03/04/19 12:00 04/03/19 11:59 Pantoprazole (Protonix) 40 mg DAILY ORAL 03/04/19 09:00 04/03/19 08:59 03/10/19 08:26 Temazepam (Restoril) 7.5 mg HSPRN PRN ORAL Insomnia 03/04/19 21:00 03/11/19 20:59 03/07/19 20:39 Mare Lockwood MD Mar 10, 2019 10:57
[2019-03-10 12:00] VITALS: BP 137/91
--- NOTE | 2019-03-10 14:55 | NUR ---
*-* INSURANCE *-* ALL AVAILABLE CLINICALS HAVE BEEN FAXED TO: [facility] ADJ: NIRMALA AMBER. P- [phone] F- [phone] CALLED REEL TENDER NO ANSWER LVM TO CALL ME TO CONFIRM CLINICALS HAVE BEEN RECEIVED
--- NOTE | 2019-03-10 15:45 | NUR ---
NURSE NOTES: Spoke to Adrienne SANTIZO regarding patient. Per Adrienne SANTIZO: doctor's office got authorization from outpatient wound care and ok to discharge patient after received wound vac to take home. Order noted and carried out.
[2019-03-10 15:57] VITALS: BP 120/72
--- NOTE | 2019-03-10 16:32 | NUR ---
SOCIAL ECONOMIST NOTES SPOKE WITH AEL FROM [facility], WOUND VAC TO BE DELIVERED WITHIN 3 HOURS. NURSE MADE AWARE. [facility] [phone]
--- NOTE | 2019-03-10 19:07 | NUR ---
HAND-OFF: Report given to Stevie Perera RN. Patient stable, sleeping.
--- NOTE | 2019-03-10 19:30 | NUR ---
NURSE NOTES: Received report from MARYBETH Schwartz. Received pt in the restroom, AOX4, denies any pain, no distress noted. wound vac connected setting 125 mmHg mild continuous, no output noted at this time. Surgical dressing c/d/i. Pt ambulated from the restroom to the bed without any problems using walker. Bed in lowest position and locked, side rails up x 2, call light within reach. Will continue to monitor.
[2019-03-10 20:00] VITALS: BP 125/84
--- NOTE | 2019-03-10 20:30 | NUR ---
NURSE NOTES: Wound vac delivered by [facility]. Pt states she does not have a ride home tonight. Pt states she prefers to go home in am.
[2019-03-11] VITALS: BP 118/71
[2019-03-11 05:00] VITALS: BP 106/67
[2019-03-11] MEDS: Cefepime HCl 1 GM in D5W 55 ML IVPB SCH (05:36)
--- NOTE | 2019-03-11 07:20 | NUR ---
HAND-OFF: Report given to MARYBETH Carrasquillo. Pt in stable condition.
--- NOTE | 2019-03-11 07:30 | NUR ---
NURSE NOTES: Received report from Stevie RUEDA. Patient is awake and oriented, no acute distress noted, reporting pain rated 7/10 to left knee, will medicate per order. Dressing and knee immobilizer in place, wound vac running per order. IV intact, patent. [employer] delivered portable wound vac last night approximately 2029 per report, will follow up with Woody GONZALEZ today to apply portable vac and discharge patient per order. Fall precautions maintained, patient's personal cane within reach, patient refuses non-skid socks. Updated on plan of care for the day. Side rails upx2, bed low and locked, call light within reach.
[2019-03-11 08:00] VITALS: BP 141/97
[2019-03-11] MEDS: Lisinopril 20mg tab ORAL SCH (08:48)
--- NOTE | 2019-03-11 10:48 | NUR ---
NURSE NOTES: Wound vac sponges and dressing changed by Woody GONZALEZ. Patient tolerated well, wound vac running per order. Woody GONZALEZ stated to follow up prior to discharge to place portable [employer] vac, portable vac at bedside.
--- NOTE | 2019-03-11 10:49 | Infectious Diseases Prog Note ---
Assessment/Plan Assessment/Plan antibiotics : cefepime A 1. left knee superficial wound infection with staph aureus, achromobacter s/p debridement 2. s/p left total knee arthroplasty 3. hypertension P 1. d/c iv cefepime 2. start and continue po levoquin 7 more days 3. will follow up cultures Subjective Constitutional: Denies: fever, chills Respiratory: Reports: dry cough - mild; Denies: shortness of breath Gastrointestinal/Abdominal: Denies: nausea, vomiting, diarrhea Musculoskeletal: Reports: pain - in left leg Allergies: Coded Allergies: [place] Nut (Verified Allergy, Severe, 01/26/19) TONGUE SWELLING HYDROCODONE (Verified Allergy, Severe, 01/26/19) SKIN RASH Uncoded Allergies: MACADAMIA (Allergy, Severe, 01/26/19) TONGUE SWELLING Objective Vital Signs Last 24 Hour Vital Signs Date Time Temp Pulse Resp B/P (MAP) Pulse Ox O2 Delivery O2 Flow Rate FiO2 03/11/19 08:48 141/97 03/11/19 08:00 97.2 87 18 141/97 (112) 99 03/11/19 05:00 97.8 69 18 106/67 (80) 97 03/11/19 00:00 98.4 83 18 118/71 (87) 96 03/10/19 21:00 Room Air 03/10/19 20:00 98.5 72 18 125/84 (98) 96 03/10/19 18:02 97.1 03/10/19 15:57 97.1 77 20 120/72 (88) 97 03/10/19 12:00 98.4 69 20 137/91 (106) 98 Height (Feet): 5 Height (Inches): 6.00 Weight (Pounds): 219 Respiratory/Chest: lungs clear Cardiovascular: normal rate, regular rhythm, no gallop/murmur Abdomen: soft, non tender Extremities: other - left leg brace, VAC, left leg edema Current Medications Medications (Trade) Dose Ordered Sig/Felix Route PRN Reason Start Time Stop Time Status Last Admin Dose Admin Acetaminophen (Tylenol) 650 mg Q6H PRN ORAL Temp > 100.5 03/04/19 19:30 04/03/19 11:59 Al Hydroxide/Mg Hydroxide (Mylanta) 30 ml Q6H PRN ORAL indigestion 03/03/19 16:45 04/02/19 16:44 Cefepime HCl 1 gm/ Dextrose 55 ml @ 110 mls/hr Q12H IVPB 03/07/19 18:00 03/14/19 17:59 03/11/19 05:36 Hydrochlorothiazide (Hydrodiuril) 25 mg DAILY ORAL 03/04/19 09:00 04/03/19 08:59 03/11/19 08:47 Hydromorphone HCl (Dilaudid) 1 mg Q4H PRN IVP Moderate Pain (Pain Scale 4-6) 03/04/19 19:30 03/11/19 19:29 03/09/19 22:59 Hydromorphone HCl (Dilaudid) 2 mg Q3H PRN SUBQ Severe Breakthru Pain (>7) 03/04/19 19:30 03/11/19 19:29 Hydromorphone HCl (Dilaudid) 2 mg Q4H PRN IVP Severe Pain (Pain Scale 7-10) 03/04/19 20:00 03/11/19 19:59 03/11/19 08:48 Lisinopril (Prinivil) 20 mg DAILY ORAL 03/04/19 09:00 04/03/19 08:59 03/11/19 08:48 Ondansetron HCl (Zofran) 4 mg Q6H PRN IVP Nausea & Vomiting 03/04/19 12:00 04/03/19 11:59 Pantoprazole (Protonix) 40 mg DAILY ORAL 03/04/19 09:00 04/03/19 08:59 03/11/19 08:47 Temazepam (Restoril) 7.5 mg HSPRN PRN ORAL Insomnia 03/04/19 21:00 03/11/19 20:59 03/07/19 20:39 Mare Lockwood MD Mar 11, 2019 10:49
--- NOTE | 2019-03-11 11:14 | NUR ---
NURSE NOTES: Called [facility] and spoke with nurse Shelton, arranged follow up appointment for patient for 03/16/19 at 0930, patient is aware. Called the office of SUKHDEV Deleon to confirm patient has home health arrangements prior to discharge. Awaiting callback from SUKHDEV.
[2019-03-11] MEDS: Levofloxacin 500mg tab ORAL SCH (11:28)
[2019-03-11 12:00] VITALS: BP 117/79
--- NOTE | 2019-03-11 13:40 | General Progress Note ---
Assessment/Plan Assessment/Plan: Status post total knee replacement left with superficial wound infection and delayed healing. Debridement, culturing of a superficial delayed wound closure left knee following total knee replacement. hypertension, cultures + staph PLAN 1. incentive spirometry 2. Lovenox 3. PT evaluation and therapy 4. Antibiotics - Levaquin 5. Pain management 6. hope to dc today with wound care and wound vac Subjective Allergies: Coded Allergies: [place] Nut (Verified Allergy, Severe, 01/26/19) TONGUE SWELLING HYDROCODONE (Verified Allergy, Severe, 01/26/19) SKIN RASH Uncoded Allergies: MACADAMIA (Allergy, Severe, 01/26/19) TONGUE SWELLING Subjective post op care noted ID and cultures noted clearance noted Objective Last 24 Hour Vital Signs Date Time Temp Pulse Resp B/P (MAP) Pulse Ox O2 Delivery O2 Flow Rate FiO2 03/11/19 12:00 98.2 64 18 117/79 (92) 97 03/11/19 09:00 Room Air 03/11/19 08:48 141/97 03/11/19 08:00 97.2 87 18 141/97 (112) 99 03/11/19 05:00 97.8 69 18 106/67 (80) 97 03/11/19 00:00 98.4 83 18 118/71 (87) 96 03/10/19 21:00 Room Air 03/10/19 20:00 98.5 72 18 125/84 (98) 96 03/10/19 18:02 97.1 03/10/19 15:57 97.1 77 20 120/72 (88) 97 Intake and Output 03/10/19 03/11/19 19:00 07:00 Intake Total 775 ml 535 ml Output Total 0 ml Balance 775 ml 535 ml Intake Oral 720 ml 480 ml IV Total 55 ml 55 ml Output Drainage Total 0 ml # Voids 3 3 Height (Feet): 5 Height (Inches): 6.00 Weight (Pounds): 219 Objective WDWN NAD clear breath sounds bilaterally without rhonchi or wheeze [id number] without MRG NABS nontender no HSM no CCE nonfocal Nhan Cardenas MD Mar 11, 2019 13:40
--- NOTE | 2019-03-11 13:51 | NUR ---
NURSE NOTES:WOUND CARE FOLLOW-UP NOTES:NPWT L knee wound changed today. L knee wound resolving. Beefy red granulation at base of wound. Edges flat and adherent to base of wound. Periwound without erythema or induration.(L)10.8cm x (W)1.7cm. Small amt sanguineous exudate noted during wound care.Dry scaly plaques noted periwound .Pt stated she has Hx of Eczema. L knee wound cleansed with Saline. Cavilon Skin Barrier applied along borders . Transparent drape sheet applied along borders of wound. Granulofoam cut to conform to wound . Additional foam cut to accommodate sensor trac of Vac. Covered with transparent drape ,NPWT resumed at 125mm/Hg to continuous suction. Pt tolerated procedure well.Dry skin moisturized with Phytoplex lotion. Pt pending discharge home. Pt educated of risks vs benefits to having NPWT to promote granulation and wound closure. Instructed pt on safety while on NPWT . Pt instructed to notify Home health immediately if NPWT malfunctions. Pt cautioned not to turn off NPWT and to keep NPWT plugged in when sitting or laying in bed. Pt cautioned granulofoam must be removed if NPWT is off for 2hours. PT instructed to remove granulofoam and to apply Saline moist wet to dry gauze drsg until NPWT can be resumed ,and to notify Home Health immediately.Pt has been educated on applying wet to dry drsg.
--- NOTE | 2019-03-11 14:05 | NUR ---
NURSE NOTES: Spoke with SUKHDEV Deleon. Per PA, patient needs to have home health arrangements prior to discharge for wound vac care, PA ordered to discharge patient after home health arrangements are made. All orders entered.
--- NOTE | 2019-03-11 14:16 | NUR ---
PT NOTE Attempted in a.m. and p.m. to see patient for PT treatment. Patient declined to participate with PT, states she has been up to the bathroom and wants to rest. Neida RUEDA notified, will follow.
--- NOTE | 2019-03-11 14:30 | NUR ---
FLOAT REMOVER NOTES SPOKE WITH BRITTANI FROM DR. COLE OFFICE MADE AWARE OF PT REQUIRING HOME HEALTH SERVICES FOR WOUND CARE. PT WILL DC WITH A WOUND VAC IN PLACE. PER BRITTANI HE WILL CALL AND GET THE AUTHORIZATION FOR HH. WILL FOLLOW UP. Addendum: 03/11/19 at 1637 by NY COLLINS RN RN PLACED A CALL TO [facility] NO ANSWER MESSAGE LEFT TO RETURN CALL IN REGARDS TO HH AGENCY. WILL FOLLOW UP.
--- NOTE | 2019-03-11 15:10 | NUR ---
*-* INSURANCE *-* ALL AVAILABLE CLINICALS HAVE BEEN FAXED TO: [facility] ADJ: NIRMALA AMBER. P- [phone] F- [phone] CALLED GLOBAL ACCOUNT DIRECTOR NO ANSWER LVM TO CALL ME TO CONFIRM CLINICALS HAVE BEEN RECEIVED
--- NOTE | 2019-03-11 15:23 | Cardiology Report ---
APPROVED REPORT EKG Measurement Heart [id number] Sinus rhythm with premature atrial complexes with aberrant conduction Prolonged QT Abnormal ECG
[2019-03-11 16:00] VITALS: BP 135/80
--- NOTE | 2019-03-11 19:20 | NUR ---
NURSE NOTES: Report taken from MARYBETH Carrasquillo. Patient is awake and in bed, A&Ox4. No signs of distress on room air. Moderate complaints of pain, primarily at vac site and slightly down the Lt LE, 10/20. Will contact MD for new orders of pain medication. Wound vac at constant suction 125mmHg. IV site c/d/i and patent, no fluids running per orders. Skin intact, suction foam replacement M/W/F. Awaiting home health assessment for discharge home with wound vac, aware. Bed in lowest position, call light within reach.
--- NOTE | 2019-03-11 19:30 | NUR ---
HAND-OFF: Report given to Ayo RUEDA.
[2019-03-11 20:00] VITALS: BP 133/86
[2019-03-11] MEDS ORDERED: HYDROmorphone 1mg/ml Carpuject IVP PRN (22:45)
[2019-03-12] VITALS: BP 122/84
[2019-03-12 04:00] VITALS: BP 124/84
--- NOTE | 2019-03-12 07:20 | NUR ---
HAND-OFF: Report given to MARYBETH Mike. Patient is asleep and stable.
--- NOTE | 2019-03-12 07:30 | NUR ---
NURSE NOTES: Patient is in bed awake and able to verbalize needs. Stable. Patient complains of pain and asks for pain medication, will administer medicine as ordered. Patient is in bed in locked and lowest position with call light within reach. Will continue to monitor.
[2019-03-12 08:00] VITALS: BP 128/79
[2019-03-12] MEDS: Lisinopril 20mg tab ORAL SCH (08:16)
[2019-03-12] MEDS: Levofloxacin 500mg tab ORAL SCH (08:16)
--- NOTE | 2019-03-12 08:42 | General Progress Note ---
Assessment/Plan Assessment/Plan: Status post total knee replacement left with superficial wound infection and delayed healing. Debridement, culturing of a superficial delayed wound closure left knee following total knee replacement. hypertension, cultures + staph PLAN 1. incentive spirometry 2. Lovenox 3. PT evaluation and therapy 4. Antibiotics - Levaquin 5. Pain management 6. hope to dc today with wound care and wound vac Subjective Allergies: Coded Allergies: [place] Nut (Verified Allergy, Severe, 01/26/19) TONGUE SWELLING HYDROCODONE (Verified Allergy, Severe, 01/26/19) SKIN RASH Uncoded Allergies: MACADAMIA (Allergy, Severe, 01/26/19) TONGUE SWELLING Subjective post op care noted ID and cultures noted clearance noted Objective Last 24 Hour Vital Signs Date Time Temp Pulse Resp B/P (MAP) Pulse Ox O2 Delivery O2 Flow Rate FiO2 03/12/19 08:26 Room Air 03/12/19 08:16 134/80 03/12/19 08:00 98.2 84 18 128/79 (95) 95 03/12/19 04:00 98.3 62 19 124/84 (97) 95 03/12/19 00:00 98.5 59 17 122/84 (97) 100 03/11/19 21:00 Room Air 03/11/19 20:00 98.3 65 18 133/86 (102) 94 03/11/19 16:00 98.4 70 16 135/80 (98) 98 03/11/19 12:00 98.2 64 18 117/79 (92) 97 03/11/19 09:00 Room Air 03/11/19 08:48 141/97 Intake and Output 03/11/19 03/12/19 19:00 07:00 Intake Total 1200 ml 750 ml Balance 1200 ml 750 ml Intake Oral 1200 ml 750 ml # Voids 3 3 # Bowel Movements 1 Height (Feet): 5 Height (Inches): 6.00 Weight (Pounds): 219 Objective WDWN NAD clear breath sounds bilaterally without rhonchi or wheeze [id number] without MRG NABS nontender no HSM no CCE nonfocal Nhan Cardenas MD Mar 12, 2019 08:42
--- NOTE | 2019-03-12 10:55 | Infectious Diseases Prog Note ---
Assessment/Plan Assessment/Plan A; Surgical wound infection with MSSA & Achromobacter s/p left total knee replacement HPN Obesity Osteoarthritis P; Agree with discharge with PO Levaquin Subjective ROS Limited/Unobtainable: No Constitutional: Reports: no symptoms Gastrointestinal/Abdominal: Reports: no symptoms Genitourinary: Reports: no symptoms Musculoskeletal: Reports: pain, other - in left knee Allergies: Coded Allergies: [place] Nut (Verified Allergy, Severe, 01/26/19) TONGUE SWELLING HYDROCODONE (Verified Allergy, Severe, 01/26/19) SKIN RASH Uncoded Allergies: MACADAMIA (Allergy, Severe, 01/26/19) TONGUE SWELLING Objective Vital Signs Last 24 Hour Vital Signs Date Time Temp Pulse Resp B/P (MAP) Pulse Ox O2 Delivery O2 Flow Rate FiO2 03/12/19 08:26 Room Air 03/12/19 08:16 134/80 03/12/19 08:00 98.2 84 18 128/79 (95) 95 03/12/19 04:00 98.3 62 19 124/84 (97) 95 03/12/19 00:00 98.5 59 17 122/84 (97) 100 03/11/19 21:00 Room Air 03/11/19 20:00 98.3 65 18 133/86 (102) 94 03/11/19 16:00 98.4 70 16 135/80 (98) 98 03/11/19 12:00 98.2 64 18 117/79 (92) 97 Height (Feet): 5 Height (Inches): 6.00 Weight (Pounds): 219 General Appearance: no acute distress HEENT: mucous membranes moist Respiratory/Chest: lungs clear Cardiovascular: normal rate Abdomen: soft, non tender Extremities: other - left leg edema Skin: ulcers Neurologic/Psychiatric: alert, oriented x 3, responsive Current Medications Medications (Trade) Dose Ordered Sig/Felix Route PRN Reason Start Time Stop Time Status Last Admin Dose Admin Acetaminophen (Tylenol) 650 mg Q6H PRN ORAL Temp > 100.5 03/04/19 19:30 04/03/19 11:59 Al Hydroxide/Mg Hydroxide (Mylanta) 30 ml Q6H PRN ORAL indigestion 03/03/19 16:45 04/02/19 16:44 Hydrochlorothiazide (Hydrodiuril) 25 mg DAILY ORAL 03/04/19 09:00 04/03/19 08:59 03/12/19 08:16 Hydromorphone HCl (Dilaudid) 1 mg Q4H PRN IVP Moderate Pain (Pain Scale 4-6) 03/11/19 22:45 03/18/19 22:44 Hydromorphone HCl (Dilaudid) 2 mg Q3H PRN IVP Severe Pain (Pain Scale 7-10) 03/11/19 22:45 03/18/19 22:44 03/12/19 08:17 Levofloxacin (Levaquin) 500 mg DAILY ORAL 03/11/19 11:00 03/18/19 10:59 03/12/19 08:16 Lisinopril (Prinivil) 20 mg DAILY ORAL 03/04/19 09:00 04/03/19 08:59 03/12/19 08:16 Ondansetron HCl (Zofran) 4 mg Q6H PRN IVP Nausea & Vomiting 03/04/19 12:00 04/03/19 11:59 Pantoprazole (Protonix) 40 mg DAILY ORAL 03/04/19 09:00 04/03/19 08:59 03/12/19 08:16 Mesfin Barros MD Mar 12, 2019 10:55
--- NOTE | 2019-03-12 11:14 | NUR ---
TONGUE AND GROOVE MACHINE OPERATOR NOTES PLACE A CALL TO NIRMALA IN REGARDS TO SAHNA AREVALO LEFT. WILL FOLLOW UP. Addendum: 03/12/19 at 1310 by NY COLLINS RN RN placed a call to shana Almeida. will follow up.
--- NOTE | 2019-03-12 11:52 | NUR ---
PT WEEKLY PROGRESS NOTE Patient being seen for gait training and safety training. Patient able to transfer independently, able to ambulate 150 ft with SPC with supervision, wound vac in tow. Verbal cues provided for proper posture and gait mechanics. Patient will benefit from continued inpatient protection specialist intervention for gait training, safety training and endurance training.
[2019-03-12 12:00] VITALS: BP 117/80
--- NOTE | 2019-03-12 14:00 | NUR ---
PT NOTE Attempted to see patient for PT treatment, patient sleeping, will re-attempt later as schedule permits.
[2019-03-12 16:00] VITALS: BP 119/77
--- NOTE | 2019-03-12 16:51 | NUR ---
*-* INSURANCE *-* ALL AVAILABLE CLINICALS HAVE BEEN FAXED TO: [facility] ADJ: NIRMALA CLARK. P- [phone] Addendum: 03/12/19 at 1651 by LINDSAY MCLEOD CM CALLED JACK PRIZER NO ANSWER LVM TO CALL ME TO CONFIRM CLINICALS HAVE BEEN RECEIVED
--- NOTE | 2019-03-12 19:13 | NUR ---
HAND-OFF: Report given to Ayo RUEDA. Patient is stable.
--- NOTE | 2019-03-12 19:15 | NUR ---
NURSE NOTES: Report taken from MARYBETH Mike. Patient is awake and in bed, A&Ox4. No signs of distress on room air. Is feeling "pressure" like pain with some minor throbbing at surgical site, 11/19, tolerating pain meds well. IV site c/d/i and patent, no fluids running per orders. Patient will be seeing wound care nurse tomorrow at 1030 for family home instructions for wound care. Bed in lowest position, call light within reach.
[2019-03-12 20:00] VITALS: BP 119/77
[2019-03-13] VITALS: BP 123/81
--- NOTE | 2019-03-13 07:23 | NUR ---
HAND-OFF: Report given to MARYBETH Escalera. Patient is asleep in bed, stable.
[2019-03-13 08:00] VITALS: BP 141/75
--- NOTE | 2019-03-13 08:00 | NUR ---
NURSE NOTES: Patient received from [place]. Patient stable sleeping at this time. Call light within reach. Bed low and locked. Will continue to monitor.
--- NOTE | 2019-03-13 09:03 | General Progress Note ---
Assessment/Plan Assessment/Plan: Status post total knee replacement left with superficial wound infection and delayed healing. Debridement, culturing of a superficial delayed wound closure left knee following total knee replacement. hypertension, cultures + staph PLAN 1. incentive spirometry 2. Lovenox 3. PT evaluation and therapy 4. Antibiotics - Levaquin 5. Pain management 6. hope to dc today with wound care and wound vac Subjective Allergies: Coded Allergies: [place] Nut (Verified Allergy, Severe, 01/26/19) TONGUE SWELLING HYDROCODONE (Verified Allergy, Severe, 01/26/19) SKIN RASH Uncoded Allergies: MACADAMIA (Allergy, Severe, 01/26/19) TONGUE SWELLING Subjective post op care noted ID and cultures noted clearance noted Objective Last 24 Hour Vital Signs Date Time Temp Pulse Resp B/P (MAP) Pulse Ox O2 Delivery O2 Flow Rate FiO2 03/13/19 00:00 98.2 74 18 123/81 (95) 97 03/12/19 21:00 Room Air 03/12/19 20:00 98.6 78 20 119/77 (91) 96 03/12/19 16:00 98.2 78 20 119/77 (91) 96 03/12/19 12:00 97.8 60 20 117/80 (92) 96 Intake and Output 03/12/19 03/13/19 19:00 07:00 Intake Total 1200 ml 1000 ml Balance 1200 ml 1000 ml Intake Oral 1200 ml 1000 ml # Voids 2 2 Height (Feet): 5 Height (Inches): 6.00 Weight (Pounds): 219 Objective WDWN NAD clear breath sounds bilaterally without rhonchi or wheeze [id number] without MRG NABS nontender no HSM no CCE nonfocal Nhan Cardenas MD Mar 13, 2019 09:03
[2019-03-13] MEDS: Levofloxacin 500mg tab ORAL SCH (09:17)
[2019-03-13] MEDS: Lisinopril 20mg tab ORAL SCH (09:18)
--- NOTE | 2019-03-13 10:10 | NUR ---
PT NOTE Attempted to see patient for PT evaluation. Patient declined at this time, states she is preparing for her discharge. Lali RUEDA notified, will follow.
--- NOTE | 2019-03-13 11:10 | NUR ---
*-* INSURANCE *-* ALL AVAILABLE CLINICALS HAVE BEEN FAXED TO: [facility] ADJ: NIRMALA CLARK. P- [phone] F- [phone]
[2019-03-13 12:00] VITALS: BP 145/90
--- NOTE | 2019-03-13 12:13 | NUR ---
NURSE NOTES: Patient's dressing changed and wound vac changed. Portable wond vac placed.
--- NOTE | 2019-03-13 12:25 | NUR ---
NURSE NOTES: PLACED CALL TO [facility] [place] [facility]. SPOKE TO ARTUR. PATIENT SCHEDULED ON Saturday @ 12:30 P.M. PARKING WILL BE VALIDATED BY WOUND CARE CENTER. PRIMARY RN MADE AWARE AND WILL PLACE INFO ON PATIENT'S DISCHARGE INSTRUCTIONS.
--- NOTE | 2019-03-13 13:00 | NUR ---
NURSE NOTES:WOUND CARE FOLLOW-UP: Wound education of wound vac drsg change provided to pt and pt's sister. No exudate noted in canister. Drsg to L knee removed . L knee wound resolving (L)10.8cm x (W)1.5cm. [place] granulation noted at base of wound . Edges flat ad adherent to base of wound. NO odor noted. Periwound skin is darshana and peeling secondary to Hx of Eczema. Pt's skin washed, damp skin moisturized with Phytoplex Skin Nourishing lotion. L knee wound cleansed with saline. [place] Skin Barrier applied to borders of wound. Small denuded area inferior but in close proximity to L knee wound-Cleansed with saline. Covered with 3x3 Optifoam drsg. Transparent drape drsg placed along borders of L knee wound. Granulofoam then cut to conform to wound. Additional Foam cut and placed as cap to accomodate Sensor trac of Vac. Covered with Transparent drsg. Sensor trac secured over wound .NPWT resumed at 125mm/Hg to continuous suction. NPWT connected to Portable Wound Vac for Home discharge. Pt and Pt's sister given step by step instructions on applying NPWT throughout removal and application of NPWT . Reinforced to pt NPWT is not to disconnected or Vac off for 2hours or more . Pt and sister also instructed on applying wet to drsg in event NPWT malfunctions. Pt and Pt's sister verbalized understanding to all instructions given. Pt has Appt with [facility] [place] on Saturday.
--- NOTE | 2019-03-13 13:05 | Infectious Diseases Prog Note ---
Assessment/Plan Assessment/Plan A; Surgical wound infection with MSSA & Achromobacter s/p left total knee replacement HPN Obesity Osteoarthritis P; Agree with discharge with PO Levaquin Subjective ROS Limited/Unobtainable: No Constitutional: Reports: no symptoms Cardiovascular: Reports: no symptoms Gastrointestinal/Abdominal: Reports: no symptoms Genitourinary: Reports: no symptoms Musculoskeletal: Reports: pain, other - left knee Allergies: Coded Allergies: [place] Nut (Verified Allergy, Severe, 01/26/19) TONGUE SWELLING HYDROCODONE (Verified Allergy, Severe, 01/26/19) SKIN RASH Uncoded Allergies: MACADAMIA (Allergy, Severe, 01/26/19) TONGUE SWELLING Objective Vital Signs Last 24 Hour Vital Signs Date Time Temp Pulse Resp B/P (MAP) Pulse Ox O2 Delivery O2 Flow Rate FiO2 03/13/19 12:00 97.8 84 20 145/90 (108) 95 03/13/19 09:18 141/75 03/13/19 09:00 Room Air 03/13/19 08:00 97.9 73 18 141/75 (97) 98 03/13/19 00:00 98.2 74 18 123/81 (95) 97 03/12/19 21:00 Room Air 03/12/19 20:00 98.6 78 20 119/77 (91) 96 03/12/19 16:00 98.2 78 20 119/77 (91) 96 Height (Feet): 5 Height (Inches): 6.00 Weight (Pounds): 219 General Appearance: no acute distress HEENT: mucous membranes moist Respiratory/Chest: lungs clear Cardiovascular: normal rate Abdomen: soft, non tender Skin: ulcers, other - left knee wound-vac Neurologic/Psychiatric: alert, oriented x 3, responsive Current Medications Medications (Trade) Dose Ordered Sig/Felix Route PRN Reason Start Time Stop Time Status Last Admin Dose Admin Acetaminophen (Tylenol) 650 mg Q6H PRN ORAL Temp > 100.5 03/04/19 19:30 04/03/19 11:59 Al Hydroxide/Mg Hydroxide (Mylanta) 30 ml Q6H PRN ORAL indigestion 03/03/19 16:45 04/02/19 16:44 Hydrochlorothiazide (Hydrodiuril) 25 mg DAILY ORAL 03/04/19 09:00 04/03/19 08:59 03/13/19 09:17 Hydromorphone HCl (Dilaudid) 1 mg Q4H PRN IVP Moderate Pain (Pain Scale 4-6) 03/11/19 22:45 03/18/19 22:44 Hydromorphone HCl (Dilaudid) 2 mg Q3H PRN IVP Severe Pain (Pain Scale 7-10) 03/11/19 22:45 03/18/19 22:44 03/13/19 11:40 Levofloxacin (Levaquin) 500 mg DAILY ORAL 03/11/19 11:00 03/18/19 10:59 03/13/19 09:17 Lisinopril (Prinivil) 20 mg DAILY ORAL 03/04/19 09:00 04/03/19 08:59 03/13/19 09:18 Ondansetron HCl (Zofran) 4 mg Q6H PRN IVP Nausea & Vomiting 03/04/19 12:00 04/03/19 11:59 Pantoprazole (Protonix) 40 mg DAILY ORAL 03/04/19 09:00 04/03/19 08:59 03/13/19 09:17 Mesfin Barros MD Mar 13, 2019 13:05
[2019-03-13] MEDS ORDERED: Tubing IV Secondary IV ONE (13:19)
[2019-03-13] MEDS ORDERED: NS 275ml ONE (13:19)
--- NOTE | 2019-03-13 14:05 | NUR ---
NURSE NOTES: Patient discharged. 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 Knee immobilizer on. Portable woundVAC in place patient understands how to use it and so does sister. Extra dressings and equipment given to patient. She is aware that she has follow up appointment with wound care on Saturday and understands that a wet to dry dressing needs to be applied should the woundVAC stop working. Patient verbalized understanding. Patient taken down via wheelchair to private vehicle.
--- NOTE | 2019-03-14 16:27 | Discharge Summary ---
Discharge Summary Discharge Summary _ DATE OF ADMISSION: 03/03/2019 DATE OF DISCHARGE: 03/13/2019 DISCHARGED BY: Dr. Nhan Cardenas SURGEON: Dr. Santino Mart CONSULTANTS: Dr. 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 Postop course was uneventful. He was admitted for evaluation and possible wound infection and breakdown. She was placed on n.p.o. He was given IV hydration. She was given pain management. On 03/04/2019, she underwent I&D and revision of left knee wound and wound VAC placement by Dr. Santino Rene. Patient tolerated procedure well and returned to recovery room in good condition. Await plastic surgery consult pending insurance carrier approval. He was given postop care. He was encouraged use of incentive he was placed on Lovenox for DVT prophylaxis. He was continued on antibiotics. She was given wound care. Wound VAC dressing per protocol. She was given physical therapy. Blood culture was growing staph aureus. Infectious disease specialist was consulted. Antibiotics adjusted. Patient was given cefepime. Patient would need home health services for wound care. Needs authorization for wound VAC. Patient continued on gait training and safety training. Patient was able to transfer independently, able to ambulate 150 feet with SPC with supervision, wound VAC in tow. Vitals were stable. Home radha arrangements made. Patient was cleared for discharge home. FINAL DIAGNOSES: Surgical wound infection with MSSA and achromobacter Status post left total knee replacement with superficial wound infection and delayed healing Status post I&D and revision of left knee wound with wound VAC placement Hypertension Obesity Osteoarthritis DISPOSITION: DC home with home health DISCHARGE MEDICATIONS: Refer to Discharge Medication List. DISCHARGE INSTRUCTIONS: Follow-up in a week. I have been assigned to complete a discharge summary on this account, I was not involved with the patient's management.--SAMANTA Catalan Jacqueline Robles NP Mar 14, 2019 16:27
--- NOTE | 2019-03-16 11:29 | NUR ---
*-* INSURANCE *-* ALL AVAILABLE CLINICALS HAVE BEEN FAXED TO: [facility] ADJ: NIRMALA CLARK. P- [phone] F- [phone]
--- NOTE | 2019-03-16 11:30 | NUR ---
*-* INSURANCE *-* DISCHARGE SUMMARY HAS BEEN FAXED TO: [facility] ADJ: NIRMALA CLARK. P- [phone] F- [phone]
== END 2019-03-13 13:20 | disposition home or self-care (01) | DRG 858 ==
LOC: SDSOVERFLO 12:14 → 3E 13:04
PROC: 0JBP0ZZ Excision of Left Lower Leg Subcutaneous Tissue and Fascia, Open Approach (ICD-10-PCS; principal; 2019-03-04 11:00)
DX: T81.41XA Infection following a procedure, superficial incisional surgical site, initial encounter (principal); Y83.8 Other surgical procedures as the cause of abnormal reaction of the patient, or of later complication, without mention of misadventure at the time of the procedure; I10 Essential (primary) hypertension; D64.9 Anemia, unspecified; B95.61 Methicillin susceptible Staphylococcus aureus infection as the cause of diseases classified elsewhere; B96.89 Other specified bacterial agents as the cause of diseases classified elsewhere; Z96.652 Presence of left artificial knee joint; M17.12 Unilateral primary osteoarthritis, left knee; E66.9 Obesity, unspecified; Z88.6 Allergy status to analgesic agent
CPT/HCPCS: 36415; 71045; 80048; 82962; 85025; 85610; 85730; 87070; 87075; 87081; 87181; 87205; 93005; 94003; 94150; J2250; J7030; J8499

== ENCOUNTER 2019-03-16 13:48 | Outpatient (RCR) | payer OTHER ==
[~2019-03-16] VITALS: Ht 160 cm; Wt 90.7 kg
[~2019-03-16 13:48] MED LIST changes: +ACETAMINOPHEN325 M1 ORAL; +AMBIEN10 MG ORAL
== END 2019-04-11 | disposition home or self-care (01) ==
LOC: WCC 13:48
DX: L97.822 Non-pressure chronic ulcer of other part of left lower leg with fat layer exposed (principal); T86.821 Skin graft (allograft) (autograft) failure; T81.31XA Disruption of external operation (surgical) wound, not elsewhere classified, initial encounter; Z96.659 Presence of unspecified artificial knee joint; I10 Essential (primary) hypertension
CPT/HCPCS: 11042; 15271; 93922; 97605; G0277; Q4106; Q4101

== ENCOUNTER 2019-04-13 10:05 | Outpatient (RCR) | payer OTHER | END 2019-05-12 | disposition home or self-care (01) | LOC: WCC 10:05 | DX: L97.822 Non-pressure chronic ulcer of other part of left lower leg with fat layer exposed (principal); T86.821 Skin graft (allograft) (autograft) failure; T81.31XS Disruption of external operation (surgical) wound, not elsewhere classified, sequela; X58.XXXS Exposure to other specified factors, sequela; Z96.659 Presence of unspecified artificial knee joint; I10 Essential (primary) hypertension | CPT/HCPCS: 11042; 15271; G0277; G0463; Q4106; Q4101 ==